=== PATIENT | male | born 1975 | race Caucasian/White ===

== ENCOUNTER 2017-07-11 09:43 | Inpatient (IN) ==
[2017-07-11] MEDS ORDERED: Ondansetron 4 MG/2 ML VIAL IVP ONE (10:22)
[2017-07-11] MEDS ORDERED: *HR* Morphine 2 MG/ML SYRINGE IVP ONE ×2 (10:22→12:17)
[2017-07-11] MEDS ORDERED: Ketorolac 30 MG/ML VIAL IVP ONE (10:22)
[2017-07-11 10:27] LABS: Bilirubin,Urine Negative (Negative); Blood,Urine Large (Negative); Clarity,Urine Clear (Clear); Color,Urine Yellow (Yellow); Glucose,Urine (UA) Normal (Normal); Ketones,Urine Negative (Negative); Leukocyte Esterase,Urine Negative (Negative); Nitrite,Urine Negative (Negative); PH,Urine 5.5 pH Units (5.0-8.0); Protein,Urine Trace mg/dL (Neg-Trace); Urobilinogen,Urine Normal (Normal)
--- NOTE | 2017-07-11 10:28 | Emergency Department Note ---
Disposition Clinical Impression: Ureterolithiasis, Intractable pain Hematuria Qualifiers: Hematuria type: unspecified type Qualified Code(s): R31.9 - Hematuria, unspecified Disposition: Admitted As Inpatient Referrals: NONE,PCP [Primary Care Provider] - Forms: ED Satisfaction Letter, Work/School Release Abdominal Pain HPI - General Chief Complaint: ED Abdominal Pain Stated Complaint: kidney stones x 1 week Time Seen by Provider: 07/11/17 09:56 Source: patient Mode of arrival: ambulatory Limitations: no limitations Nursing Notes Reviewed: Yes Vital Signs Reviewed: Yes - History of Present Illness HPI Narrative: This 42-year-old white male with history of hypertension and prior kidney stones who presents to the emergency department today with colicky generalized bilateral flank pain and suprapubic pain that he states he has been experiencing intermittently for the past 7 days. This morning patient states the pain severity worse and he is primarily feeling significant pain in the suprapubic area and complaining of difficulty urinating. Patient denies any fevers or chills over the past 7 days, is complaining of current nausea but no vomiting. Patient has a history of prior kidney stones but no required intervention by urology in the past. Patient states he has passed them spontaneously. He has no radiation of pain into the groin or testicles. Patient denies any chest pain or pressure, no diaphoresis, no shortness of breath. Patient denies any other associated symptoms at this time. Patient appears to be having colicky suprapubic pain. Pain Scale: 10 - Related Data Home Medications Medication Instructions Recorded Confirmed No Known Home Drugs 07/11/17 07/11/17 Allergies Allergy/AdvReac Type Severity Reaction Status Date / Time Hydromorphone [From Dilaudid] Allergy Swelling Verified 07/11/17 09:48 of Lip/Tongue/Throat Penicillins Allergy Hives Verified 07/11/17 09:48 Sulfa (Sulfonamide Allergy Hives Verified 07/11/17 09:48 Antibiotics) tramadol [From Ultram] Allergy Swelling Verified 07/11/17 09:48 of Lip/Tongue/Throat All systems ED: reviewed and negative except as stated. Constitutional: Denies: fever, chills Cardiovascular: Denies: chest pain, palpitations Respiratory: Denies: cough, dyspnea Gastrointestinal: Reports: abdominal pain, nausea. Denies: vomiting, diarrhea, constipation, hematemesis, melena, hematochezia Genitourinary: Reports: frequency. Denies: urgency, dysuria, hematuria, discharge, testicular pain, testicular mass, genital lesions Musculoskeletal: Reports: back pain Integumentary: Denies: rash Abdominal Pain PMH - Past Medical History Medical history: Reports: kidney stones Male Surgical History: Reports: Adenoidectomy, orthopedic, other, Tonsillectomy Psychiatric history: Reports: no psych history - Social History Smoking status: Never smoker Alcohol use: Reports: none Drug use: Reports: none Physical Exam - General Limitations: no limitations General appearance: alert (Patient appears uncomfortable with colicky pain, having difficulty finding a comfortable position.), other - Head Head exam: atraumatic, normocephalic, normal inspection - Eye Eye exam: Present: normal appearance, PERRL, EOMI - ENT ENT exam: normal exam, normal oropharynx - Neck Neck exam: Present: normal inspection - Chest Chest inspection: Present: normal inspection - Respiratory Respiratory exam: Present: normal lung sounds bilaterally. Absent: respiratory distress - Cardiovascular Cardiovascular exam: Present: regular rate, normal rhythm, normal heart sounds - Abdominal Exam Abdominal exam: Present: soft, tenderness, normal bowel sounds (Patient with majority of moderate tenderness to palpation in suprapubic area with mild tenderness to palpation in the right and left lower quadrants. No peritoneal signs.). Absent: distention, guarding, rebound, rigidity, pulsatile mass Abdominal tenderness: Present: RLQ, LLQ, suprapubic - Rectal Exam Rectal exam: Present: deferred - Male exam: Present: normal inspection - Extremities Exam Extremities exam: Present: normal inspection. Absent: pedal edema - Back Exam Back exam: Present: full ROM, CVA tenderness (R), CVA tenderness (L). Absent: muscle spasm, paraspinal tenderness - Neurological Exam Neurological exam: Present: alert, oriented X3, CN II-XII intact, normal gait, reflexes normal. Absent: motor sensory deficit - Psychiatric Psychiatric exam: Present: normal affect, normal mood - Skin Skin exam: Present: warm, dry, intact, normal color. Absent: rash Course Course Narrative: Patient is a 42-year-old white male with a history of prior kidney stones presents to the emergency room with a one-week history of intermittent bilateral flank pain and now worsening suprapubic pain with difficulty urinating. Patient is hemodynamically stable on arrival. We will start an IV, placed on continuous pulse ox and administer pain and nausea medications to get his symptoms under control. We will keep close monitor his hemodynamic status. Labs and urinalysis have been ordered as well as CT stone study for further evaluation. - Reevaluation(s) Reevaluation #1: On reevaluation patient's rating his pain as currently a 10 out of 10 in severity right sided radiating into his suprapubic area. We are re-dosing medications at this time. CT scan shows an obstructing 3 mm stone at the UVJ with moderate [place]. Due to intractable pain and I will plan to admit the patient to hospitalist. I consult urology from the ED and spoke with Dr. Gurwinder rosen on the phone who agrees that he will consult on the patient and see the patient later this afternoon. Patient remains hemodynamically stable otherwise and will be admitted for further management. Time: 12:23 Vital Signs Temperature 97.3 F L 07/11/17 09:46 Pulse Rate 86 07/11/17 09:46 Respiratory Rate 18 07/11/17 09:46 Blood Pressure 181/99 07/11/17 09:46 O2 Sat by Pulse Oximetry 96 07/11/17 09:46 Temperature 97.3 F L 07/11/17 09:46 Pulse Rate 70 07/11/17 11:33 Respiratory Rate 16 07/11/17 11:33 Blood Pressure 142/74 07/11/17 11:33 O2 Sat by Pulse Oximetry 93 07/11/17 11:33 Oxygen Delivery Oxygen Delivery Room Air Abdominal Pain - Medical Records Medical records reviewed: Yes I reviewed the patient's medical records. - Lab Data Lab results reviewed: Yes I reviewed the patient's lab results. Result diagrams: 07/11/17 10:30 07/11/17 10:49 Lab Results 07/11/17 07/11/17 07/11/17 Range/Units 10:20 10:30 10:30 WBC 8.9 (4.3-11.1) K/mcL RBC 5.56 H (4.19-5.50) M/mcL Hgb 16.5 (12.9-16.9) g/dL Hct 47.8 (37.5-50.1) % MCV 86.0 (83.0-100.0) fL MCH 29.7 (28.0-33.3) pg MCHC 34.5 (31.6-35.5) g/dL RDW 12.3 (11.5-14.5) % Plt Count 297 (140-400) K/mcL MPV 11.1 (9.4-12.4) fL Immature Gran % 0.4 (0-4) % Seg Neutrophils % 67.7 % Lymphocytes % 18.2 % Monocytes % 9.8 % Eosinophils % 2.8 % Basophils % 1.1 % Neutrophils # 6.0 (1.6-8.9) K/mcL Lymphocytes # 1.6 (0.6-4.6) K/mcL Monocytes # 0.9 (0.0-1.3) K/mcL Eosinophils # 0.3 (0.0-0.6) K/mcL Basophils # 0.1 (0.0-0.2) K/mcL Sodium (136-145) mEq/L Potassium (3.5-4.5) mEq/L Chloride (98-109) mEq/L Carbon Dioxide (19-29) mEq/L BUN (8-26) mg/dL Creatinine (0.72-1.25) mg/dL Est GFR ( Amer) (> 60) Est GFR (Non-Af Amer) (> 60) BUN/Creatinine Ratio (6-26) Glucose (70-99) mg/dL Calculated Osmolality (280-300) Calcium (8.6-10.8) mg/dL Urine Color Yellow (Yellow) Urine Clarity Clear (Clear) Urine pH 5.5 (5.0-8.0) pH Units Ur Specific [place] 1.030 H (1.010-1.025) Urine Protein Trace (Neg-Trace) mg/dL Urine Glucose (UA) Normal (Normal) mg/dL Urine Ketones Negative (Negative) mg/dL Urine Blood Large H (Negative) Urine Nitrite Negative (Negative) Urine Bilirubin Negative (Negative) Urine Urobilinogen Normal (Normal) mg/dL Ur Leukocyte Esterase Negative (Negative) Urine Microscopic RBC 5-15 H (0-3) per hpf Urine Microscopic WBC 3-5 H (0-3) per hpf Ur Squamous Epith Cells Many H (None-Few) per lpf Urine Bacteria None Seen (None-Few) per hpf Hyaline Casts None Seen (None-Few) per lpf Ur Culture Indicated? NO (NO) Specimen Rejected Hemolyzed 07/11/17 Range/Units 10:49 WBC (4.3-11.1) K/mcL RBC (4.19-5.50) M/mcL Hgb (12.9-16.9) g/dL Hct (37.5-50.1) % MCV (83.0-100.0) fL MCH (28.0-33.3) pg MCHC (31.6-35.5) g/dL RDW (11.5-14.5) % Plt Count (140-400) K/mcL MPV (9.4-12.4) fL Immature Gran % (0-4) % Seg Neutrophils % % Lymphocytes % % Monocytes % % Eosinophils % % Basophils % % Neutrophils # (1.6-8.9) K/mcL Lymphocytes # (0.6-4.6) K/mcL Monocytes # (0.0-1.3) K/mcL Eosinophils # (0.0-0.6) K/mcL Basophils # (0.0-0.2) K/mcL Sodium 137 (136-145) mEq/L Potassium 4.3 (3.5-4.5) mEq/L Chloride 105 (98-109) mEq/L Carbon Dioxide 23 (19-29) mEq/L BUN 12 (8-26) mg/dL Creatinine 1.01 (0.72-1.25) mg/dL Est GFR ( Amer) > 60 (> 60) Est GFR (Non-Af Amer) > 60 (> 60) BUN/Creatinine Ratio 12 (6-26) Glucose 130 H (70-99) mg/dL Calculated Osmolality 286 (280-300) Calcium 9.7 (8.6-10.8) mg/dL Urine Color (Yellow) Urine Clarity (Clear) Urine pH (5.0-8.0) pH Units Ur Specific [place] (1.010-1.025) Urine Protein (Neg-Trace) mg/dL Urine Glucose (UA) (Normal) mg/dL Urine Ketones (Negative) mg/dL Urine Blood (Negative) Urine Nitrite (Negative) Urine Bilirubin (Negative) Urine Urobilinogen (Normal) mg/dL Ur Leukocyte Esterase (Negative) Urine Microscopic RBC (0-3) per hpf Urine Microscopic WBC (0-3) per hpf Ur Squamous Epith Cells (None-Few) per lpf Urine Bacteria (None-Few) per hpf Hyaline Casts (None-Few) per lpf Ur Culture Indicated? (NO) Specimen Rejected - Radiology Data Radiology results reviewed: Yes I reviewed the patient's radiology results. Abdomen/Pelvis CT 07/11/17 10:23 IMPRESSION: 1. Obstructing 3 mm right ureterovesical junction stone with resultant moderate right-sided hydronephrosis. 2. Sequela of old granulomatous disease. D/ / 07/11/2017 12:12:30 Cedrick Stone MD / milena Interpreting Provider: Cedrick Stone MD
[2017-07-11 10:29] LABS: Bacteria,Urine None Seen per hpf (None-Few); Hyaline Casts,Urine None Seen per lpf (None-Few); Squamous Epithelial Cell,Urine Many per lpf (None-Few)
[2017-07-11 10:37] LABS: Basophils # 0.1 K/mcL (0.0-0.2); Basophils % 1.1 %; Eosinophils # 0.3 K/mcL (0.0-0.6); Eosinophils % 2.8 %; Hematocrit 47.8 % (37.5-50.1); Hemoglobin 16.5 g/dL (12.9-16.9); Immature Granulocytes % 0.4 % (0-4); Lymphocytes # 1.6 K/mcL (0.6-4.6); Lymphocytes % 18.2 %; Mean Corpuscular HGB Conc 34.5 g/dL (31.6-35.5); Mean Corpuscular Hemoglobin 29.7 pg (28.0-33.3); Mean Platelet Volume 11.1 fL (9.4-12.4); Monocytes # 0.9 K/mcL (0.0-1.3); Monocytes % 9.8 %; Platelet Count 297 K/mcL (140-400); Red Blood Count 5.56 M/mcL (4.19-5.50); Red Cell Distribution Width 12.3 % (11.5-14.5); Segmented Neutrophils % 67.7 %
[2017-07-11 11:08] LABS: BUN/Creatinine Ratio 12 (6-26); Blood Urea Nitrogen 12 mg/dL (8-26); Calcium 9.7 mg/dL (8.6-10.8); Carbon Dioxide 23 mEq/L (19-29); Chloride 105 mEq/L (98-109); Glucose 130 mg/dL (70-99); Osmolality,Calculated 286 (280-300); Potassium 4.3 mEq/L (3.5-4.5); Sodium 137 mEq/L (136-145); eGFR For African Americans > 60 (> 60); eGFR For Non-African Americans > 60 (> 60)
[2017-07-11] MEDS ORDERED: Ondansetron 4 MG/2 ML VIAL IVP PRN (13:46)
[2017-07-11] MEDS ORDERED: Naloxone 0.4 MG/ML INJ IVP PRN (13:46)
--- NOTE | 2017-07-11 13:47 | Urology - Consult Note ---
Date of Encounter: 07/11/17 Time of Encounter: 13:42 - Assessment and Plan (1) Ureterolithiasis Current Visit: Yes Status: Acute Assessment and plan: push fluids tonight., npo after midnight for possible stone extraction tomorrow afternoon. Urology CN:ALICIA Consult date: 07/11/17 Reason for consult Urology: Other (right distal ureteral stone) Requesting physician: Dinora Norwood History of present illness: Isaiah is a 42 y/o male with a history of presentation to the emergency Department secondary to severe right-sided flank and suprapubic pain. Patient was found on CT scan to have a distal 1-2 mm stone. Patient's pain was poorly controlled with IV pain medicine. No nausea or vomiting. No fevers. Past Med Surg Social Fam HX - Past Medical History Medical history: kidney stones Psychiatric history: no psych history - Social History Smoking Status: Never smoker Smokeless Tobacco Status: Yes Alcohol use: none Drug use: none Medications and Allergies No Known Home Drugs 07/11/17 [History] 3 Allergy/AdvReac Type Severity Reaction Status Date / Time Hydromorphone [From Dilaudid] Allergy Swelling Verified 07/11/17 09:48 of Lip/Tongue/Throat Penicillins Allergy Hives Verified 07/11/17 09:48 Sulfa (Sulfonamide Allergy Hives Verified 07/11/17 09:48 Antibiotics) tramadol [From Ultram] Allergy Swelling Verified 07/11/17 09:48 of Lip/Tongue/Throat Review of Systems - Constitutional no chills - EENT Nose, mouth and throat: no dizziness - Cardiovascular no chest pain - Respiratory no cough - Gastrointestinal no abdominal pain Exam Initial Vital Signs Temp Pulse Resp BP Pulse Ox 97.3 F L 86 18 181/99 96 07/11/17 09:46 07/11/17 09:46 07/11/17 09:46 07/11/17 09:46 07/11/17 09:46 - General physical appearance Present: well developed - Eyes Present: PERRL - ENT Present: normal nares - Neck Present: no masses - Respiratory Present: normal respiratory effort - Cardiovascular Cardiovascular exam IM: RRR - Abdomen Abdomen: Present: soft Urology Results - Labs 07/11/17 10:30 07/11/17 10:49 Abnormal lab results RBC 5.56 M/mcL (4.19-5.50) H 07/11/17 10:30 Glucose 130 mg/dL (70-99) H 07/11/17 10:49 Ur Specific [place] 1.030 (1.010-1.025) H 07/11/17 10:20 Urine Blood Large (Negative) H 07/11/17 10:20 Urine Microscopic RBC 5-15 per hpf (0-3) H 07/11/17 10:20 Urine Microscopic WBC 3-5 per hpf (0-3) H 07/11/17 10:20 Ur Squamous Epith Cells Many per lpf (None-Few) H 07/11/17 10:20 Diabetes panel 07/11/17 Range/Units 10:49 Sodium 137 (136-145) mEq/L Potassium 4.3 (3.5-4.5) mEq/L Chloride 105 (98-109) mEq/L Carbon Dioxide 23 (19-29) mEq/L BUN 12 (8-26) mg/dL Creatinine 1.01 (0.72-1.25) mg/dL Glucose 130 H (70-99) mg/dL Calcium 9.7 (8.6-10.8) mg/dL Calcium panel 07/11/17 Range/Units 10:49 Calcium 9.7 (8.6-10.8) mg/dL Pituitary panel 07/11/17 Range/Units 10:49 Sodium 137 (136-145) mEq/L Potassium 4.3 (3.5-4.5) mEq/L Chloride 105 (98-109) mEq/L Carbon Dioxide 23 (19-29) mEq/L BUN 12 (8-26) mg/dL Creatinine 1.01 (0.72-1.25) mg/dL Glucose 130 H (70-99) mg/dL Calcium 9.7 (8.6-10.8) mg/dL Adrenal panel 07/11/17 Range/Units 10:49 Sodium 137 (136-145) mEq/L Potassium 4.3 (3.5-4.5) mEq/L Chloride 105 (98-109) mEq/L Carbon Dioxide 23 (19-29) mEq/L BUN 12 (8-26) mg/dL Creatinine 1.01 (0.72-1.25) mg/dL Glucose 130 H (70-99) mg/dL Calcium 9.7 (8.6-10.8) mg/dL All other labs normal. Consult Discharge Plan - Plan Referrals: NONE,PCP [Primary Care Provider] -
[2017-07-11] MEDS ORDERED: 0.9 % Sodium Chloride 1,000 ML IVC SCH (14:00)
--- NOTE | 2017-07-11 14:15 | Internal Med History&Physical ---
<Sanaz Davidson - Last Filed: 07/11/17 14:28> Date of Encounter: 07/11/17 Time of Encounter: 14:09 Assessment and Plan (1) Ureterolithiasis Current visit: Yes Status: Acute 1 patient has been experiencing bilateral flank pain radiating to suprapubic area difficulty urinating for the past week. CT shows an obstructing 3 mm stone at the UVJ with moderate hydronephrosis. Urology's consulted. Patient will be nothing by mouth after midnight. 2 we will continue with IV fluids overnight 3 continue with morphine for pain as well as Zofran 4 we will monitor creatinine (2) DVT prophylaxis Current visit: Yes Status: Acute SCD Internal Medicine - H&P: HPI Chief complaint: abd pain Admitted From: Emergency Dept Plans for Post Hospital Care: Home History of present illness: Mr. Romano is a 42 year old male past medical history of hypertension prior kidney stone which patient passed on his own approximately one year ago. Patient has been experiencing for 1 week intermittent bilateral flank pain which he describes as sharp and radiating to his suprapubic area. He has been experiencing difficulty in urinating however no hematuria or dysuria. He denies any fevers or chills, chest pain or shortness of breath. He does have some nausea and vomiting. He continues to experience 10 out 10 flank pain radiating to his suprapubic area, despite the use of Percocets at home. He presented to the ER with the above complaints. CT scan showed an obstructing 3 mm stone at the UVJ with moderate hydronephrosis. Urology was consulted. Patient has been admitted for further workup and evaluation. Terry patient states his pain has improved, however he does have bilateral CVA tenderness as well as tenderness to suprapubic area upon palpation. He is hemodynamically stable this time. T P Past Med Surg Social Fam HX - Past Medical History Medical history: kidney stones Psychiatric history: no psych history - Social History Smoking Status: Never smoker Smokeless Tobacco Status: Yes Alcohol use: none Drug use: none - Family History Father Living Status: Cause of : [place] Mother Living Status: Still Living Hx Family Endocrine Disorder: Yes (Diabetes) Internal Medicine - H&P: Meds No Known Home Drugs 07/11/17 [History] 3 Allergy/AdvReac Type Severity Reaction Status Date / Time Hydromorphone [From Dilaudid] Allergy Swelling Verified 07/11/17 09:48 of Lip/Tongue/Throat Penicillins Allergy Hives Verified 07/11/17 09:48 Sulfa (Sulfonamide Allergy Hives Verified 07/11/17 09:48 Antibiotics) tramadol [From Ultram] Allergy Swelling Verified 07/11/17 09:48 of Lip/Tongue/Throat All Systems PM: A 10-system review of systems was performed and is negative for pertinent findings except as documented above in the HPI. - Constitutional Constitutional: no chills, no fever(s), no night sweats - EENT Eyes: no change in vision, no discharge, no pain, no photophobia Nose, mouth and throat: no dysphagia, no nasal discharge, no neck pain, no sore throat - Cardiovascular Cardiovascular ROS IM: no chest pain, no diaphoresis, no dyspnea, no lightheadedness, no palpitations, no syncope - Respiratory Respiratory: no cough, no dyspnea, no wheezing, no excessive phlegm production - Gastrointestinal Gastrointestinal: abdominal pain, nausea, vomiting - Genitourinary Genitourinary ROS male: difficulty urinating - Musculoskeletal Musculoskeletal ROS IM: no numbness, no tingling - Integumentary Integumentary IM: no rash, no unusual bruising - Neurological Neurological ROS: no confusion, no convulsions, no focal weakness, no numbness, no tingling, no tremor(s) - Hematologic/Lymphatic Hematologic/Lymphatic: no easy bruising - Constitutional Vitals: Temp Pulse Resp BP Pulse Ox 97.3 F L 65 16 132/89 98 07/11/17 09:46 07/11/17 12:57 07/11/17 12:57 07/11/17 12:57 07/11/17 12:57 General appearance: Present: A&O X 3 - Head Head exam: Present: atraumatic, normocephalic - Eye Eye exam: Present: PERRL, conjuntiva pink, sclera anicteric Pupils: Present: PERRL - Neck Neck exam general surgery: Present: supple, trachea midline. Absent: lymphadenopathy - Respiratory Respiratory exam: Present: CTAB. Absent: accessory muscle use, rales, rhonchi, wheezes - Cardiovascular Cardiovascular exam: Present: RRR, +S1, +S2. Absent: diastolic murmur, gallop, rubs, systolic murmur - GI/Abdominal GI/Abdominal exam: Present: normal bowel sounds, soft, tenderness, no peritoneal signs. Absent: distended - Extremities Exam Extremities exam: Present: warm, radial pulses palpable and symmetrical. Absent : calf tenderness, cyanotic, pedal edema - Back Exam Back exam: Present: CVA tenderness (L), CVA tenderness (R) - Neurological Exam Neurological exam: Present: CN II-XII intact, oriented X3, no focal deficits. Absent: pronater drift, facial droop, speech deficit - Skin Skin exam: Present: dry, intact Internal Med - H&P Results - Labs CBC & Chem 7: 07/11/17 10:30 07/11/17 10:49 Labs: Short CBC 07/11/17 Range/Units 10:30 WBC 8.9 (4.3-11.1) K/mcL Hgb 16.5 (12.9-16.9) g/dL Hct 47.8 (37.5-50.1) % Plt Count 297 (140-400) K/mcL Neutrophils # 6.0 (1.6-8.9) K/mcL BMP 07/11/17 10:49 Sodium 137 Potassium 4.3 Chloride 105 Carbon Dioxide 23 BUN 12 Creatinine 1.01 Glucose 130 H Calcium 9.7 Urine 07/11/17 Range/Units 10:20 Urine Color Yellow (Yellow) Urine Clarity Clear (Clear) Urine pH 5.5 (5.0-8.0) pH Units Ur Specific [place] 1.030 H (1.010-1.025) Urine Protein Trace (Neg-Trace) mg/dL Urine Glucose (UA) Normal (Normal) mg/dL - Impressions ITS Impressions Abdomen/Pelvis CT 07/11/17 10:23 IMPRESSION: 1. Obstructing 3 mm right ureterovesical junction stone with resultant moderate right-sided hydronephrosis. 2. Sequela of old granulomatous disease. D/ / 07/11/2017 12:12:30 Cedrick Stone MD / bcarter Interpreting Provider: Cedrick Stone MD - Diagnostic Studies Other Images Additional comments: Abdomen/Pelvis CT 07/11/17 10:23 IMPRESSION: 1. Obstructing 3 mm right ureterovesical junction stone with resultant moderate right-sided hydronephrosis. 2. Sequela of old granulomatous disease. D/ / 07/11/2017 12:12:30 Cedrick Stone MD / milena Interpreting Provider: Cedrick Stone MD <Wicho Landeros P - Last Filed: 07/11/17 18:50> Date of Encounter: 07/11/17 Internal Medicine - H&P: HPI History of present illness: Mr. Romano is a 42 year old male All Systems PM: A 10-system review of systems was performed and is negative for pertinent findings except as documented above in the HPI. - Constitutional Vitals: Temp Pulse Resp BP Pulse Ox 98.2 F 80 16 160/95 98 07/11/17 17:05 07/11/17 17:05 07/11/17 17:05 07/11/17 17:05 07/11/17 17:05 Internal Med - H&P Results - Labs CBC & Chem 7: 07/11/17 10:30 07/11/17 10:49 - Attending Attestation I examined this patient and my medical decision-making was reviewed with the Resident Physician/ DOCK WORKER. I agree with the documented findings, disposition and treatment plan as described except to the extent set forth below. 42/male Admitted with renal stone. Urology on the board. We will follow the recommendations from urology.
[2017-07-11] MEDS: 0.9 % Sodium Chloride 1,000 ML IVC SCH (17:58)
[2017-07-11] MEDS: *HR* Morphine 2 MG/ML SYRINGE IVP PRN ×2 (18:25→22:41)
--- NOTE | 2017-07-11 20:14 | Anesthesia Evaluation PreOp ---
Date of Encounter: 07/11/17 Time of Encounter: 20:14 - Past History Planned Operation: Right USE Cardiac History: HTN Pulmonary History: Denies Any Significant HX PROVIDER ENROLLMENT SPECIALIST History: Denies Any Significant HX Other Medical History: Renal (Stones) Anesthesia History: Past Anesthesia (left Shoulder) Alcohol Use: none Drug use: marijuana Medications and Allergies No Known Home Drugs 07/11/17 [History] 3 Allergy/AdvReac Type Severity Reaction Status Date / Time Hydromorphone [From Dilaudid] Allergy Swelling Verified 07/11/17 09:48 of Lip/Tongue/Throat Penicillins Allergy Hives Verified 07/11/17 09:48 Sulfa (Sulfonamide Allergy Hives Verified 07/11/17 09:48 Antibiotics) tramadol [From Ultram] Allergy Swelling Verified 07/11/17 09:48 of Lip/Tongue/Throat - Meds/Allergy Pre-op Review Medications Reviewed: Yes Allergies Reviewed: Yes Beta Blockers on Current Med List: No Anesthesia Results - Labs 07/11/17 10:30 07/11/17 10:49 - Imaging EKG: image reviewed (SINUS RHYTHM WITH SINUS ARRHYTHMIA) Anesthesia Exam O2 Sat Height 1.68 m Height 1.68 m Weight 113.398 kg Weight 113.398 kg O2 Sat by Pulse Oximetry 98 O2 Sat by Pulse Oximetry 96 O2 Sat by Pulse Oximetry 98 O2 Sat by Pulse Oximetry 95 O2 Sat by Pulse Oximetry 97 O2 Sat by Pulse Oximetry 98 O2 Sat by Pulse Oximetry 93 O2 Sat by Pulse Oximetry 96 Vital Signs Temp Pulse Resp BP Pulse Ox 97.3 F L 86 18 181/99 96 07/11/17 09:46 07/11/17 09:46 07/11/17 09:46 07/11/17 09:46 07/11/17 09:46 Vital Signs/O2 Sat, Most Current Temp Pulse Resp BP Pulse Ox 97.7 F 74 15 145/96 98 07/11/17 23:57 07/11/17 23:57 07/11/17 23:57 07/11/17 23:57 07/11/17 23:57 Height: 5'6'' Weight: 250# NPO (# of Hours): > 8 hrs Pain Scale: 0 Pain Scale Used: Numeric (1 - 10) - HEENT Pupil (Motor): Pupils equal, EOMI Mallampati: III Teeth: Normal Oral Opening: Greater than 3 - PROVIDER ENROLLMENT SPECIALIST LOC: Oriented PROVIDER ENROLLMENT SPECIALIST Motor: Normal RUE, Normal LUE, Normal RLE, Normal LLE, Normal Face PROVIDER ENROLLMENT SPECIALIST Sensory: Normal: RUE, LUE, RLE, LLE, Face - Cardiac Rhythm: Regular Murmur: None JVD: No Carotid Bruit: No - Pulmonary Breath Sounds: bilateral Clear Respiratory Effort: Symmetrical Anesthesia Assess/Plan ASA Score: 2 Modified Fern Scale for Level of Consciousness: Anixous, agitated or restless Anesthetic Plan: General Autologous Blood: Yes Monitoring Plan: Standard Monitors Recovery Plan: PACU
[2017-07-12] MEDS: 0.9 % Sodium Chloride 1,000 ML IVC SCH (01:52)
[2017-07-12] MEDS: *HR* Morphine 2 MG/ML SYRINGE IVP PRN ×3 (02:57→10:40)
[2017-07-12 04:42] LABS: Basophils # 0.1 K/mcL (0.0-0.2); Basophils % 0.6 %; Eosinophils # 0.3 K/mcL (0.0-0.6); Eosinophils % 3.7 %; Hematocrit 44.7 % (37.5-50.1); Immature Granulocytes % 0.3 % (0-4); Lymphocytes # 2.7 K/mcL (0.6-4.6); Lymphocytes % 28.6 %; Mean Corpuscular HGB Conc 33.6 g/dL (31.6-35.5); Mean Corpuscular Hemoglobin 29.6 pg (28.0-33.3); Mean Corpuscular Volume 88.3 fL (83.0-100.0); Mean Platelet Volume 11.4 fL (9.4-12.4); Monocytes # 0.9 K/mcL (0.0-1.3); Monocytes % 10.2 %; Neutrophils # 5.2 K/mcL (1.6-8.9); Platelet Count 253 K/mcL (140-400); Red Blood Count 5.06 M/mcL (4.19-5.50); Red Cell Distribution Width 12.6 % (11.5-14.5); Segmented Neutrophils % 56.6 %
[2017-07-12 05:00] LABS: BUN/Creatinine Ratio 14 (6-26); Blood Urea Nitrogen 11 mg/dL (8-26); Calcium 8.6 mg/dL (8.6-10.8); Carbon Dioxide 23 mEq/L (19-29); Chloride 110 mEq/L (98-109); Glucose 96 mg/dL (70-99); Magnesium 1.7 mg/dL (1.6-2.6); Osmolality,Calculated 289 (280-300); Potassium 4.1 mEq/L (3.5-4.5); Sodium 140 mEq/L (136-145); eGFR For African Americans > 60 (> 60); eGFR For Non-African Americans > 60 (> 60)
[2017-07-12] MEDS ORDERED: 0.9 % Sodium Chloride 1,000 ML IVC SCH (07:15)
--- NOTE | 2017-07-12 07:15 | Urology Progress Note ---
Date of Encounter: 07/12/17 Time of Encounter: 07:14 - Assessment and Plan (1) Ureterolithiasis Current Visit: Yes Status: Acute Assessment and plan: to OR today for stone extraction. likely able to dc later today after surgery Progress Note Narrative: patient seen this am. has not passed stone. pain off and on. Objective Initial Vital Signs Temp Pulse Resp BP Pulse Ox 97.3 F L 86 18 181/99 96 07/11/17 09:46 07/11/17 09:46 07/11/17 09:46 07/11/17 09:46 07/11/17 09:46 - General physical appearance Present: well developed - Abdomen Present: soft - Labs 07/12/17 03:51 07/12/17 03:51 Diabetes panel 07/12/17 Range/Units 03:51 Sodium 140 (136-145) mEq/L Potassium 4.1 (3.5-4.5) mEq/L Chloride 110 H (98-109) mEq/L Carbon Dioxide 23 (19-29) mEq/L BUN 11 (8-26) mg/dL Creatinine 0.78 (0.72-1.25) mg/dL Glucose 96 (70-99) mg/dL Calcium 8.6 (8.6-10.8) mg/dL Calcium panel 07/12/17 Range/Units 03:51 Calcium 8.6 (8.6-10.8) mg/dL Pituitary panel 07/12/17 Range/Units 03:51 Sodium 140 (136-145) mEq/L Potassium 4.1 (3.5-4.5) mEq/L Chloride 110 H (98-109) mEq/L Carbon Dioxide 23 (19-29) mEq/L BUN 11 (8-26) mg/dL Creatinine 0.78 (0.72-1.25) mg/dL Glucose 96 (70-99) mg/dL Calcium 8.6 (8.6-10.8) mg/dL Adrenal panel 07/12/17 Range/Units 03:51 Sodium 140 (136-145) mEq/L Potassium 4.1 (3.5-4.5) mEq/L Chloride 110 H (98-109) mEq/L Carbon Dioxide 23 (19-29) mEq/L BUN 11 (8-26) mg/dL Creatinine 0.78 (0.72-1.25) mg/dL Glucose 96 (70-99) mg/dL Calcium 8.6 (8.6-10.8) mg/dL Consult Discharge Plan - Plan Referrals: Krishan Stanton MD [Partnered Physician] -
[2017-07-12] MEDS ORDERED: Ketorolac 30 MG/ML VIAL IVP ONE (12:24)
[2017-07-12] MEDS ORDERED: *HR* Morphine 2 MG/ML SYRINGE IVP ONE (12:24)
[2017-07-12] MEDS ORDERED: *HR* Morphine 2 MG/ML SYRINGE IVP PRN ×2 (14:53→15:51)
[2017-07-12] MEDS ORDERED: *HR* Promethazine 25 MG/ML VIAL IVP PRN (14:53)
[2017-07-12] MEDS ORDERED: Ondansetron 4 MG/2 ML VIAL ONE (14:56)
[2017-07-12] MEDS ORDERED: *HR* FentaNYL (PF) 100 MCG/2 ML VIAL ONE (14:56)
[2017-07-12] MEDS ORDERED: *HR* Propofol 200 MG/20 ML VIAL IVP ONE (14:56)
[2017-07-12] MEDS ORDERED: Dexamethasone 4 MG/ML VIAL ONE (14:56)
[2017-07-12] MEDS ORDERED: Lidocaine -MPF 2% 2 ML VIAL ONE (14:56)
--- NOTE | 2017-07-12 14:57 | Operative Note ---
Date of procedure: 07/12/17 Pre-op diagnosis: right distal ureteral stone Post-op diagnosis: same Procedure: Right ureteroscopic basket retrieval of stone Anesthesia: TIERA Surgeon: Krishan Stanton Specimen: Right ureteral stone Condition: stable Disposition: PACU Procedure in Detail: Patient was prepped and draped in normal sterile fashion. Timeout procedure performed. I then inserted the semirigid ureteroscope into the patient's urethra and advanced into the bladder. Upon entering the bladder I could see the right ureteral stone at the ureteral orifice. I used the basket device to remove the stone. I then placed the ureteroscope up the distal ureter with no further stone seen. Scope was removed and the procedure was ended.
--- NOTE | 2017-07-12 14:57 | Event Note ---
Date of Encounter: 07/12/17 Time of Encounter: 14:57 Patient is okay to discharge from urology standpoint with follow-up in 2-3 weeks.
[2017-07-12] MEDS ORDERED: ceFAZolin 2,000 MG in Water for inj. (sterile) 20 ML IVP ONE (15:42)
--- NOTE | 2017-07-12 15:43 | Anesthesia Evaluation Post Op ---
Date of Encounter: 07/12/17 Time of Encounter: 15:42 - Vital Signs Vital Signs: Selected Entries 07/12/17 15:30 Temperature 97.0 F L Pulse Rate 69 Respiratory Rate 16 Blood Pressure 134/84 O2 Sat by Pulse Oximetry 94 - Lungs Lungs: Clear Ascult./Percussion - Airway Airway: Non-obstructed - Cardiovascular Regular Rate - Mental Status Mental Status: Alert & Oriented, Answers Appropriately - Pain Pain Scale: 0 Pain Scale used: Numeric (1 - 10) - Nausea Vomiting Nausea Vomiting: Not Present - Hydration Hydration: Ice chips, Has not voided - Discharge PostOp Status: Transfer Patient to floor
[2017-07-12] MEDS ORDERED: Naloxone 0.4 MG/ML INJ IVP PRN (15:51)
[2017-07-12] MEDS ORDERED: Ondansetron 4 MG/2 ML VIAL IVP PRN (15:51)
[2017-07-12] MEDS ORDERED: *HR* HYDROcodone/Acet 5/325 mg TABLET PO PRN (15:51)
--- NOTE | 2017-07-12 17:30 | Discharge Summary ---
Date of Encounter: 07/12/17 Time of Encounter: 17:25 - Discharge Diagnosis (1) Ureterolithiasis Priority: Primary Status: Acute - Discharge Medications Prescriptions: HYDROcodone/Acet 5/325 mg [[place] 5-325 mg] 1 tab PO Q6HR PRN #12 tablet PRN Reason: pain 1-7 Home Medications: HYDROcodone/Acet 5/325 mg [[place] 5-325 mg] 1 tab PO Q6HR PRN #12 tablet [Rx] Allergies/Adverse Reactions: 3 Allergy/AdvReac Type Severity Reaction Status Date / Time Hydromorphone [From Dilaudid] Allergy Swelling Verified 07/11/17 09:48 of Lip/Tongue/Throat Penicillins Allergy Hives Verified 07/11/17 09:48 Sulfa (Sulfonamide Allergy Hives Verified 07/11/17 09:48 Antibiotics) tramadol [From Ultram] Allergy Swelling Verified 07/11/17 09:48 of Lip/Tongue/Throat Date of admission: 07/11/17 15:43 Primary care physician: PCP NONE Discharging clinician: Colt Lomeli - Patient Status Disposition: Home, Self-Care Condition: Good Functional capacity at discharge: independent ambulation Overall status at discharge: patient is progressing back to baseline - Discharge Instructions Follow Up With: Krishan Stanton MD [Partnered Physician] - - Diet and Activity Activity: increase activity as tolerated Diet: advance to your usual diet Hospital course: Mr. Romano is a 42 year old male past medical history of hypertension prior kidney stone which patient passed on his own approximately one year ago. Patient has been experiencing for 1 week intermittent bilateral flank pain which he describes as sharp and radiating to his suprapubic area. He has been experiencing difficulty in urinating however no hematuria or dysuria. He denies any fevers or chills, chest pain or shortness of breath. He does have some nausea and vomiting. He continues to experience 10 out 10 flank pain radiating to his suprapubic area, despite the use of Percocets at home. He presented to the ER with the above complaints. CT scan showed an obstructing 3 mm stone at the UVJ with moderate hydronephrosis. He was hemodynamically stable. Urology was consulted. On 07/12 he underwent right ureteroscopic basket retrieval of stone. He tolerated procedure well. He was discharged home in stable condition. - Time Spent with Patient Total time spent providing and/or coordinating discharge services: - Constitutional Vitals: Temp Pulse Resp BP Pulse Ox 98.1 F 67 16 143/84 98 07/12/17 16:45 07/12/17 16:45 07/12/17 16:45 07/12/17 16:45 07/12/17 16:45 General appearance: Present: A&O X 3 Exam: CVS: RRR Lungs: CTAB ABD: soft, nt/nd flank: +TTP right region Ext: no edema. - VTE Documentation of Mechanical Device: Intermittent pneumatic compression device
[2017-07-12 18:44] VITALS: BP 138/72
== END 2017-07-12 19:05 | disposition home or self-care (01) | DRG 446 ==
LOC: EMEROO 09:43 → 3ANU 09:43
PROVIDERS: ADMIT Nurse Practitioner Acute Care; ATTEND Student in an Organized Health Care Education/Training Program

== ENCOUNTER 2017-09-24 13:23 | Inpatient (IN) ==
[2017-09-24 14:15] LABS: Bilirubin,Urine Small (Negative); Blood,Urine Large (Negative); Clarity,Urine Cloudy (Clear); Color,Urine Red (Yellow); Glucose,Urine (UA) Normal (Normal); Ketones,Urine Negative (Negative); Leukocyte Esterase,Urine Trace (Negative); Nitrite,Urine Negative (Negative); PH,Urine 5.5 pH Units (5.0-8.0); Protein,Urine 30 mg/dL (Neg-Trace); Specific Gravity,Urine > 1.030 (1.010-1.025); Urobilinogen,Urine Normal (Normal)
[2017-09-24 14:20] LABS: Bacteria,Urine None Seen per hpf (None-Few); Hyaline Casts,Urine None Seen per lpf (None-Few); RBC,Urine TNTC per hpf (0-3); Squamous Epithelial Cell,Urine Many per lpf (None-Few)
[2017-09-24] MEDS ORDERED: *HR* Morphine 2 MG/ML SYRINGE IVP ONE ×3 (17:12→22:12)
[2017-09-24] MEDS ORDERED: Ondansetron 4 MG/2 ML VIAL IVP ONE (17:14)
--- NOTE | 2017-09-24 17:16 | Emergency Department Note ---
Disposition Clinical Impression: Kidney stone on left side Pneumonia Qualifiers: Pneumonia type: due to unspecified organism Laterality: right Lung location: lower lobe of lung Qualified Code(s): J18.1 - Lobar pneumonia, unspecified organism Disposition: Admitted As Inpatient Condition: Good Referrals: NONE,PCP [Primary Care Provider] - Forms: ED Satisfaction Letter, Work/School Release Time of Disposition: 18:40 General Adult HPI - General Chief complaint: ED Abdominal Pain Stated complaint: Kidney Stones Time Seen by Provider: 09/24/17 17:04 Source: patient Limitations: no limitations Nursing Notes Reviewed: Yes Vital Signs Reviewed: Yes - History of Present Illness HPI Narrative: Patient is a 42-year-old male the patient's emergency Department with right- sided flank pain. He states that he feels that he has a kidney stone. States that he has a history of kidney stones most recently as July. States that he had to have an intervention at that time for removal of his kidney stone. States that his pain has been ongoing for the past couple days and radiates into his groin. Patient denies any fever or chills but does state that he has been nauseated. Patient also states that he has had some dysuria and hematuria Pain Scale: 7 - Related Data Home Medications Medication Instructions Recorded Confirmed No Known Home Drugs 09/24/17 09/24/17 Allergies Allergy/AdvReac Type Severity Reaction Status Date / Time Hydromorphone [From Dilaudid] Allergy Swelling Verified 07/11/17 09:48 of Lip/Tongue/Throat Penicillins Allergy Hives Verified 07/11/17 09:48 Sulfa (Sulfonamide Allergy Hives Verified 07/11/17 09:48 Antibiotics) tramadol [From Ultram] Allergy Swelling Verified 07/11/17 09:48 of Lip/Tongue/Throat All systems ED: reviewed and negative except as stated. Constitutional: Denies: fever, chills Respiratory: Reports: cough Gastrointestinal: Reports: nausea Genitourinary: Reports: dysuria, hematuria Musculoskeletal: Reports: back pain Past Medical History - Past Medical History Medical history: Reports: kidney stones Psychiatric history: Reports: no psych history - Social History Smoking Status: Never smoker Smokeless Tobacco Status: Yes Alcohol use: Reports: none Drug use: Reports: marijuana Physical Exam - General Limitations: no limitations General appearance: alert, in no apparent distress - Head Head exam: atraumatic, normocephalic - Eye Eye exam: Present: normal appearance, EOMI - Neck Neck exam: Present: normal inspection, full ROM, trachea midline - Respiratory Respiratory exam: Present: normal lung sounds bilaterally. Absent: respiratory distress, wheezes - Cardiovascular Cardiovascular exam: Present: regular rate, normal rhythm, normal heart sounds, +S1, +S2 - Abdominal Exam Abdominal exam: Present: soft, Non-Tender, normal bowel sounds - Back Exam Back exam: Present: normal inspection, full ROM, CVA tenderness (R), CVA tenderness (L) - Neurological Exam Neurological exam: Present: alert, oriented X3 - Psychiatric Psychiatric exam: Present: normal affect, normal mood - Skin Skin exam: Present: warm, dry, intact Course Vital Signs Temperature 100.3 F H 09/24/17 13:38 Pulse Rate 93 09/24/17 13:38 Respiratory Rate 18 09/24/17 13:38 Blood Pressure 144/88 09/24/17 13:38 O2 Sat by Pulse Oximetry 96 09/24/17 13:38 Temperature 100.3 F H 09/24/17 13:38 Pulse Rate 93 09/24/17 13:38 Respiratory Rate 18 09/24/17 13:38 Blood Pressure 144/88 09/24/17 13:38 O2 Sat by Pulse Oximetry 96 09/24/17 13:38 Oxygen Delivery Oxygen Delivery Room Air Medical Decision Making - MDM Narrative Medical decision making narrative: Due the patient having recurrent kidney stones and this feeling is similar to previous kidney stones within his CBC, BMP, urinalysis and a CT of the abdomen and pelvis. Patient had an elevated white count of 18.1. Urinalysis showed possible infection and CT of the abdomen and pelvis showed a right sided pneumonia and a small kidney stone on the left measuring approximately 1-2 mm. The patient having pneumonia and possible urinary tract infection we will treat the patient with azithromycin and Rocephin. We will also give the patient a fluid bolus and dropped blood cultures. The patient will need to be admitted to the hospital for further evaluation and management. The attending called and spoke with the hospitalist and accepted the patient for service. The patient will be admitted to the hospital for further evaluation and management at this time. - Lab Data Lab results reviewed: Yes I reviewed the patient's lab results. Result diagrams: 09/24/17 17:25 09/24/17 17:25 Lab Results 09/24/17 09/24/17 09/24/17 Range/Units 14:07 17:25 17:25 WBC 18.1 H (4.3-11.1) K/mcL RBC 4.91 (4.19-5.50) M/mcL Hgb 14.4 (12.9-16.9) g/dL Hct 42.4 (37.5-50.1) % MCV 86.4 (83.0-100.0) fL MCH 29.3 (28.0-33.3) pg MCHC 34.0 (31.6-35.5) g/dL RDW 12.3 (11.5-14.5) % Plt Count 356 (140-400) K/mcL MPV 10.5 (9.4-12.4) fL Immature Gran % 0.8 (0-4) % Seg Neutrophils % 74.9 % Lymphocytes % 13.4 % Monocytes % 9.6 % Eosinophils % 1.0 % Basophils % 0.3 % Neutrophils # 13.6 H (1.6-8.9) K/mcL Lymphocytes # 2.4 (0.6-4.6) K/mcL Monocytes # 1.7 H (0.0-1.3) K/mcL Eosinophils # 0.2 (0.0-0.6) K/mcL Basophils # 0.1 (0.0-0.2) K/mcL Sodium 137 (136-145) mEq/L Potassium 3.2 L (3.5-5.1) mEq/L Chloride 101 (98-107) mEq/L Carbon Dioxide 28 (23-29) mEq/L BUN 10 (6-20) mg/dL Creatinine 0.74 (0.70-1.30) mg/dL Est GFR ( Amer) > 60 (> 60) Est GFR (Non-Af Amer) > 60 (> 60) BUN/Creatinine Ratio 14 (6-26) Glucose 140 H (70-105) mg/dL Calculated Osmolality 285 (280-300) Calcium 9.0 (8.6-10.3) mg/dL Total Bilirubin 0.5 (0.3-1.0) mg/dL Direct Bilirubin 0.1 (0.0-0.2) mg/dL Indirect Bilirubin 0.4 (0.0-1.2) mg/dL AST 13 (13-39) Units/L ALT 11 (7-52) Units/L Alkaline Phosphatase 76 (34-104) Units/L Serum Total Protein 7.5 (6.4-8.9) g/dL Albumin 3.8 (3.5-5.7) g/dL Globulin 3.7 H (2.4-3.5) g/dL Albumin/Globulin Ratio 1.0 L (1.1-2.2) Amylase 16 L (29-103) Units/L Lipase 14 (11-82) Units/L Urine Color Red A (Yellow) Urine Clarity Cloudy A (Clear) Urine pH 5.5 (5.0-8.0) pH Units Ur Specific [place] > 1.030 H (1.010-1.025) Urine Protein 30 H (Neg-Trace) mg/dL Urine Glucose (UA) Normal (Normal) mg/dL Urine Ketones Negative (Negative) mg/dL Urine Blood Large H (Negative) Urine Nitrite Negative (Negative) Urine Bilirubin Small H (Negative) Urine Urobilinogen Normal (Normal) mg/dL Ur Leukocyte Esterase Trace H (Negative) Urine Microscopic RBC TNTC H (0-3) per hpf Urine Microscopic WBC 5-15 H (0-3) per hpf Ur Squamous Epith Cells Many H (None-Few) per lpf Urine Bacteria None Seen (None-Few) per hpf Hyaline Casts None Seen (None-Few) per lpf Ur Culture Indicated? YES A (NO) - Radiology Data Radiology results reviewed: Yes I reviewed the patient's radiology results. Abdomen/Pelvis CT 09/24/17 17:12 IMPRESSION: The patient's right-sided abdominal and flank pain is probably secondary to irritation of the right hemidiaphragm secondary to pneumonia in the right lower lobe. That should be followed to resolution. There is evidence of inflammation/infection within the left lower lobe as well, albeit to a far lesser extent. No right-sided ureteral calculus is detected. Having said that, there is actually a punctate left-sided ureteral calculus detected in the distal left ureter at the ureterovesical junction, with slight left hydronephrosis and hydroureter, with periureteral fat stranding. Correlate with any clinical evidence of left flank pain. D/ / Kota Mancia MD / Kota Mancia MD Interpreting Provider: Kota Mancia MD
[2017-09-24 17:33] LABS: Basophils # 0.1 K/mcL (0.0-0.2); Basophils % 0.3 %; Eosinophils # 0.2 K/mcL (0.0-0.6); Hematocrit 42.4 % (37.5-50.1); Hemoglobin 14.4 g/dL (12.9-16.9); Immature Granulocytes % 0.8 % (0-4); Lymphocytes # 2.4 K/mcL (0.6-4.6); Lymphocytes % 13.4 %; Mean Corpuscular Hemoglobin 29.3 pg (28.0-33.3); Mean Corpuscular Volume 86.4 fL (83.0-100.0); Mean Platelet Volume 10.5 fL (9.4-12.4); Monocytes # 1.7 K/mcL (0.0-1.3); Monocytes % 9.6 %; Neutrophils # 13.6 K/mcL (1.6-8.9); Platelet Count 356 K/mcL (140-400); Red Blood Count 4.91 M/mcL (4.19-5.50); Red Cell Distribution Width 12.3 % (11.5-14.5); Segmented Neutrophils % 74.9 %
[2017-09-24 17:56] LABS: Alanine Aminotransferase 11 Units/L (7-52); Albumin 3.8 g/dL (3.5-5.7); Alkaline Phosphatase 76 Units/L (34-104); Amylase 16 Units/L (29-103); Aspartate Amino Transferase 13 Units/L (13-39); BUN/Creatinine Ratio 14 (6-26); Bilirubin,Direct 0.1 mg/dL (0.0-0.2); Bilirubin,Indirect 0.4 mg/dL (0.0-1.2); Bilirubin,Total 0.5 mg/dL (0.3-1.0); Blood Urea Nitrogen 10 mg/dL (6-20); Carbon Dioxide 28 mEq/L (23-29); Chloride 101 mEq/L (98-107); Globulin 3.7 g/dL (2.4-3.5); Glucose 140 mg/dL (70-105); Lipase 14 Units/L (11-82); Osmolality,Calculated 285 (280-300); Potassium 3.2 mEq/L (3.5-5.1); Sodium 137 mEq/L (136-145); Total Protein 7.5 g/dL (6.4-8.9); eGFR For African Americans > 60 (> 60); eGFR For Non-African Americans > 60 (> 60)
[2017-09-24] MEDS ORDERED: cefTRIAXone 1,000 MG in Water for inj. (sterile) 10 ML IVP ONE (18:26)
[2017-09-24] MEDS ORDERED: Azithromycin 500 MG in D5% in Water 250 ML IVPB ONE (18:26)
[2017-09-24] MEDS ORDERED: 0.9 % Sodium Chloride 1,000 ML IVC ONE ×2 (18:29→19:30)
--- NOTE | 2017-09-24 18:30 | Emergency Department Note ---
START Narrative - START START: I examined this patient and my medical decision-making was reviewed with the Resident Physician. I agree with the documented findings, disposition and treatment plan as described except to the extent set forth below. 42-year-old male presented to the emergency room with lower back pain. Patient thought he was having a kidney stone as he had these in the past. CT showed evidence of a right-sided pneumonia as well as a left basilar pneumonia as well. He does have a left sided distal ureteral stone. He had a slight fever here. I feel this is likely secondary to his pneumonia. He does not smoke. We will admit the patient for pain control as well as IV antibiotics with an infection in his lung as well as the urine. We will start him on Rocephin and Zithromax. Admit to hospitalist. IV fluids. No critical care time.
[2017-09-24] MEDS ORDERED: Naloxone 0.4 MG/ML INJ IVP PRN (22:33)
[2017-09-24] MEDS ORDERED: Ibuprofen 400 MG TABLET PO PRN (22:33)
[2017-09-24] MEDS ORDERED: Acetaminophen 325 MG TABLET PO PRN (22:33)
[2017-09-24] MEDS: GuaiFENesin Liq 200 MG/10 ML UDC PO PRN (22:45)
[2017-09-24] MEDS: 0.9 % Sodium Chloride 1,000 ML IVC SCH (22:53)
--- NOTE | 2017-09-25 00:02 | Internal Med History&Physical ---
Date of Encounter: 09/25/17 Time of Encounter: 23:30 Assessment and Plan (1) Pneumonia Current visit: Yes Status: Acute CAP, likely secondary to viral illness. - Ceftriaxone and azithromycin given in ED, patient tolerated ceftriaxone so will continue (pt has PCN allergy) - Blood cultures pending - Urine legionella and strep pneumo pending - Tylenol for fever Qualifiers: Pneumonia type: due to unspecified organism Laterality: bilateral Lung location: lower lobe of lung Qualified Code(s): J18.9 - Pneumonia, unspecified organism (2) Ureterolithiasis Current visit: No Status: Acute Right flank pain - likely secondary to passed stone (hematuria). Has left sided stone which is small. - IV fluids - Pain medications (3) Left elbow pain Current visit: Yes Status: Acute Unclear etiology - patient denies injury to elbow. Not edematous or erythematous , although severe pain with extension concerns me for possibility of septic arthritis. - Ceftriaxone in ED - Consider adding vancomycin if patient clinically worsens and consult ortho in AM. Fevers and leukocytosis likely secondary to pneumonia. (4) DVT prophylaxis Current visit: No Status: Acute SQ heparin Internal Medicine - H&P: HPI Chief complaint: Shortness of breath, cough, right flank pain Admitted From: Emergency Dept Plans for Post Hospital Care: Home History of present illness: Mr. Romano is a 42 year old male with history of nephrolithiasis who presented to the ED this evening with complaint of cough, shortness of breath and right- sided flank pain. He states that he has had cough for two weeks along with fever that had gotten better but has now returned for the past several days. He has been coughing up bright green sputum and has felt short of breath. For the past three days he has had right sided flank pain. He also noticed left elbow pain whihc is exacerbated by extending the elbow - it began this morning and has worsened. He denies ever having surgery to that joint. CT abdomen and pelvis in the ED showed no obstructing renal stone but did show evidence of right lower lobe pneumonia and trace left lower lobe pneumonia. Past Med Surg Social Fam HX - Past Medical History Medical history: kidney stones Psychiatric history: no psych history - Social History Smoking Status: Never smoker Smokeless Tobacco Status: Yes Alcohol use: none Drug use: marijuana - Family History Father Living Status: Mother Living Status: Still Living Hx Family Endocrine Disorder: Yes (Diabetes) Internal Medicine - H&P: Meds No Known Home Drugs 09/24/17 [History] 3 Allergy/AdvReac Type Severity Reaction Status Date / Time Hydromorphone [From Dilaudid] Allergy Swelling Verified 07/11/17 09:48 of Lip/Tongue/Throat Penicillins Allergy Hives Verified 07/11/17 09:48 Sulfa (Sulfonamide Allergy Hives Verified 07/11/17 09:48 Antibiotics) tramadol [From Ultram] Allergy Swelling Verified 07/11/17 09:48 of Lip/Tongue/Throat All Systems PM: A 10-system review of systems was performed and is negative for pertinent findings except as documented above in the HPI. - Constitutional Vitals: Temp Pulse Resp BP Pulse Ox 98.8 F 90 16 120/75 94 09/24/17 23:13 09/24/17 23:13 09/24/17 23:13 09/24/17 23:13 09/24/17 23:13 General appearance: Present: A&O X 3, no acute distress - Head Head exam: Present: atraumatic - Eye Eye exam: Present: EOMI, sclera anicteric - ENT ENT exam: Present: mucous membranes moist - Neck Neck exam general surgery: Present: supple - Respiratory Respiratory exam: Present: CTAB - Cardiovascular Cardiovascular exam: Present: RRR. Absent: diastolic murmur, gallop, rubs, systolic murmur - GI/Abdominal GI/Abdominal exam: Present: normal bowel sounds, soft. Absent: distended, tenderness - Extremities Exam Extremities exam: Absent: pedal edema Additional comments: Right elbow with tenderness to palpation along medial side, pain worsened with passive extension of the elbow. No erythema or edema appreciated. - Neurological Exam Neurological exam: Present: no focal deficits - Skin Skin exam: Absent: rash Internal Med - H&P Results - Labs CBC & Chem 7: 09/24/17 17:25 09/24/17 17:25
[2017-09-25] MEDS: *HR* HYDROcodone/Acet 5/325 mg TABLET PO PRN (05:15)
[2017-09-25] MEDS: GuaiFENesin Liq 200 MG/10 ML UDC PO PRN (05:15)
[2017-09-25] MEDS: *HR* Heparin 5,000 UNIT/ML VIAL SQ SCH ×3 (05:16→20:49)
[2017-09-25 06:00] LABS: BUN/Creatinine Ratio 9 (6-26); Basophils # 0.1 K/mcL (0.0-0.2); Basophils % 0.3 %; Blood Urea Nitrogen 6 mg/dL (6-20); Calcium 8.2 mg/dL (8.6-10.3); Carbon Dioxide 26 mEq/L (23-29); Chloride 106 mEq/L (98-107); Eosinophils # 0.2 K/mcL (0.0-0.6); Eosinophils % 1.2 %; Glucose 135 mg/dL (70-105); Hematocrit 38.7 % (37.5-50.1); Hemoglobin 12.8 g/dL (12.9-16.9); Immature Granulocytes % 0.8 % (0-4); Lymphocytes # 2.2 K/mcL (0.6-4.6); Lymphocytes % 12.2 %; Mean Corpuscular HGB Conc 33.1 g/dL (31.6-35.5); Mean Corpuscular Volume 87.6 fL (83.0-100.0); Mean Platelet Volume 10.7 fL (9.4-12.4); Monocytes # 1.7 K/mcL (0.0-1.3); Monocytes % 9.2 %; Osmolality,Calculated 284 (280-300); Platelet Count 332 K/mcL (140-400); Potassium 3.5 mEq/L (3.5-5.1); Red Blood Count 4.42 M/mcL (4.19-5.50); Red Cell Distribution Width 12.4 % (11.5-14.5); Segmented Neutrophils % 76.3 %; Sodium 137 mEq/L (136-145); eGFR For African Americans > 60 (> 60); eGFR For Non-African Americans > 60 (> 60)
[2017-09-25] MEDS: cefTRIAXone 1,000 MG in Water for inj. (sterile) 10 ML IVP SCH (08:44)
[2017-09-25] MEDS: *HR* Morphine 2 MG/ML SYRINGE IVP PRN ×4 (09:00→20:50)
[2017-09-25] MEDS: 0.9 % Sodium Chloride 1,000 ML IVC SCH (10:24)
--- NOTE | 2017-09-25 17:02 | Internal Med Progress Note ---
Date of Encounter: 09/25/17 Time of Encounter: 17:00 - Assessment and plan (1) Pneumonia Current Visit: Yes Status: Acute Assessment and plan: Reviewed CT of Chest results cont empirical abx Rocephin + Azithromycin Duoneb + O2 no need of steroids Qualifiers: Pneumonia type: due to unspecified organism Laterality: bilateral Lung location: lower lobe of lung Qualified Code(s): J18.9 - Pneumonia, unspecified organism (2) Ureterolithiasis Current Visit: No Status: Acute Assessment and plan: He does have Left ureter stone ?? Passing stone on Rt side.. with Rt flank tenderness IV analgesics IV fluids Urology consulted (3) Left elbow pain Current Visit: Yes Status: Acute Assessment and plan: Could be due bursitis Heat / Ice compressions IV analgesics will obtain X ray of Elbow - Subjective Interval history: Mr. Romano is a 42 year old male with history of nephrolithiasis who presented to the ED with complaint of cough, shortness of breath and right-sided flank pain. He states that he has had cough for two weeks along with fever that had gotten better but has now returned for the past several days. He has been coughing up bright green sputum and has felt short of breath. For the past three days he has had right sided flank pain. He also noticed left elbow pain which is exacerbated by extending the elbow. He denies ever having surgery to that joint. CT abdomen and pelvis in the ED showed no obstructing renal stone but did show evidence of right lower lobe pneumonia and trace left lower lobe pneumonia. Pt denied any CP /SOB. Still has cough +.. Still has Rt flank pain.. tolerable with medications - Constitutional Vitals: Temp Pulse Resp BP Pulse Ox 99.2 F 80 15 133/76 93 09/25/17 11:19 09/25/17 11:19 09/25/17 11:19 09/25/17 11:19 09/25/17 11:19 General appearance: Present: A&O X 3, no acute distress, answers questions appropriately - Head Head exam: Present: atraumatic, normal inspection - Neck Neck exam general surgery: Present: supple - Respiratory Respiratory exam: Present: decreased breath sounds. Absent: rales, respiratory distress, rhonchi, wheezes - Cardiovascular Cardiovascular exam: Present: RRR, +S1, +S2. Absent: tachycardia - GI/Abdominal GI/Abdominal exam: Present: normal bowel sounds, soft. Absent: rebound, rigid, tenderness - Extremities Exam Extremities exam: Present: tenderness (Left elbow posteriory..mild swelling.. no erythema noticed). Absent: pedal edema - Back Exam Back exam: Absent: CVA tenderness (L), CVA tenderness (R) - Psychiatric Psychiatric exam: Present: normal affect, normal mood Internal Medicine: Result - Labs CBC & Chem 7: 09/25/17 05:28 09/25/17 05:28 Labs: Short CBC 09/25/17 Range/Units 05:28 WBC 18.3 H (4.3-11.1) K/mcL Hgb 12.8 L D (12.9-16.9) g/dL Hct 38.7 (37.5-50.1) % Plt Count 332 (140-400) K/mcL Neutrophils # 14.0 H (1.6-8.9) K/mcL BMP 09/25/17 05:28 Sodium 137 Potassium 3.5 Chloride 106 Carbon Dioxide 26 BUN 6 Creatinine 0.67 L Glucose 135 H Calcium 8.2 L Consult Discharge Plan - Plan Referrals: NONE,PCP [Primary Care Provider] -
--- NOTE | 2017-09-25 17:20 | Urology - Consult Note ---
Date of Encounter: 09/25/17 Time of Encounter: 17:18 - Assessment and Plan (1) Kidney stone on left side Current Visit: Yes Status: Acute Assessment and plan: 42-year-old man with a distal left ureteral stone was admitted for possible right pneumonia. There is some mild left hydronephrosis. His urine culture was negative from September 24, 2017. His pain seems to be adequately controlled. Given the size of the stone, I think it would be reasonable to see if he can pass this. Also with the pneumonia, he is at higher risk for further pulmonary issues with a general anesthetic. I will follow along. Please call with any questions. Urology CN:HPI Consult date: 09/25/17 Reason for consult Urology: Other (Left ureteral stone) History of present illness: 42-year-old man was admitted for right flank pain. He is also noted some left flank pain and left orchialgia. A CT scan was performed which showed concern for pneumonia and there is also a small stone in his distal left ureter. He has a known history of kidney stones and in July 2017 underwent a right ureteroscopic stone extraction by Dr. Stanton. He says his current pain is somewhat sharp. It is worse on the right side as compared to the left. It is somewhat intermittent. Past Med Surg Social Fam HX - Past Medical History Medical history: kidney stones Psychiatric history: no psych history - Social History Smoking Status: Never smoker Smokeless Tobacco Status: Yes Alcohol use: none Drug use: marijuana - Family History Father Living Status: Mother Living Status: Still Living Hx Family Endocrine Disorder: Yes (Diabetes) Medications and Allergies No Known Home Drugs 09/24/17 [History] 3 Allergy/AdvReac Type Severity Reaction Status Date / Time Hydromorphone [From Dilaudid] Allergy Swelling Verified 07/11/17 09:48 of Lip/Tongue/Throat Penicillins Allergy Hives Verified 07/11/17 09:48 Sulfa (Sulfonamide Allergy Hives Verified 07/11/17 09:48 Antibiotics) tramadol [From Ultram] Allergy Swelling Verified 07/11/17 09:48 of Lip/Tongue/Throat Review of Systems - Constitutional no chills, no fever(s) - EENT Nose, mouth and throat: no dizziness - Cardiovascular no chest pain - Respiratory no dyspnea - Gastrointestinal no nausea, no vomiting - Genitourinary flank pain, no hematuria - Musculoskeletal no back pain - Integumentary no erythema, no rash - Neurological no weakness - Psychiatric no suicidal ideation - Hematologic/Lymphatic no easy bleeding - Allergic/Immunologic no wheezing Exam Initial Vital Signs Temp Pulse Resp BP Pulse Ox 100.3 F H 93 18 144/88 96 09/24/17 13:38 09/24/17 13:38 09/24/17 13:38 09/24/17 13:38 09/24/17 13:38 - General physical appearance Present: well developed, well nourished, no distress - Eyes Absent: icteric - ENT Present: normal nares - Neck Present: trachea midline - Respiratory Present: normal respiratory effort - Cardiovascular Cardiovascular exam IM: RRR - Abdomen Abdomen: Present: soft - Genitourinary normal penis with no external lesions, testicles non-tender, other (No testicular masses noted) Urology Results - Labs 09/25/17 05:28 09/25/17 05:28 Abnormal lab results WBC 18.3 K/mcL (4.3-11.1) H 09/25/17 05:28 Hgb 12.8 g/dL (12.9-16.9) L D 09/25/17 05:28 Neutrophils # 14.0 K/mcL (1.6-8.9) H 09/25/17 05:28 Monocytes # 1.7 K/mcL (0.0-1.3) H 09/25/17 05:28 Creatinine 0.67 mg/dL (0.70-1.30) L 09/25/17 05:28 Glucose 135 mg/dL (70-105) H 09/25/17 05:28 Calcium 8.2 mg/dL (8.6-10.3) L 09/25/17 05:28 Globulin 3.7 g/dL (2.4-3.5) H 09/24/17 17:25 Albumin/Globulin Ratio 1.0 (1.1-2.2) L 09/24/17 17:25 Amylase 16 Units/L (29-103) L 09/24/17 17:25 Urine Color Red (Yellow) A 09/24/17 14:07 Urine Clarity Cloudy (Clear) A 09/24/17 14:07 Ur Specific [place] > 1.030 (1.010-1.025) H 09/24/17 14:07 Urine Protein 30 mg/dL (Neg-Trace) H 09/24/17 14:07 Urine Blood Large (Negative) H 09/24/17 14:07 Urine Bilirubin Small (Negative) H 09/24/17 14:07 Ur Leukocyte Esterase Trace (Negative) H 09/24/17 14:07 Urine Microscopic RBC TNTC per hpf (0-3) H 09/24/17 14:07 Urine Microscopic WBC 5-15 per hpf (0-3) H 09/24/17 14:07 Ur Squamous Epith Cells Many per lpf (None-Few) H 09/24/17 14:07 Ur Culture Indicated? YES (NO) A 09/24/17 14:07 Diabetes panel 09/25/17 Range/Units 05:28 Sodium 137 (136-145) mEq/L Potassium 3.5 (3.5-5.1) mEq/L Chloride 106 (98-107) mEq/L Carbon Dioxide 26 (23-29) mEq/L BUN 6 (6-20) mg/dL Creatinine 0.67 L (0.70-1.30) mg/dL Glucose 135 H (70-105) mg/dL Calcium 8.2 L (8.6-10.3) mg/dL Calcium panel 09/25/17 Range/Units 05:28 Calcium 8.2 L (8.6-10.3) mg/dL Pituitary panel 09/25/17 Range/Units 05:28 Sodium 137 (136-145) mEq/L Potassium 3.5 (3.5-5.1) mEq/L Chloride 106 (98-107) mEq/L Carbon Dioxide 26 (23-29) mEq/L BUN 6 (6-20) mg/dL Creatinine 0.67 L (0.70-1.30) mg/dL Glucose 135 H (70-105) mg/dL Calcium 8.2 L (8.6-10.3) mg/dL Adrenal panel 09/25/17 Range/Units 05:28 Sodium 137 (136-145) mEq/L Potassium 3.5 (3.5-5.1) mEq/L Chloride 106 (98-107) mEq/L Carbon Dioxide 26 (23-29) mEq/L BUN 6 (6-20) mg/dL Creatinine 0.67 L (0.70-1.30) mg/dL Glucose 135 H (70-105) mg/dL Calcium 8.2 L (8.6-10.3) mg/dL All other labs normal. - Imaging CT scan - abdomen: report reviewed, image reviewed CT scan - pelvis: report reviewed, image reviewed Consult Discharge Plan - Plan Referrals: NONE,PCP [Primary Care Provider] -
[2017-09-25] MEDS: Ipratropium/Albuterol Neb 3 ML IH SCH ×3 (19:35→23:16)
[2017-09-25] MEDS: Azithromycin 500 MG in D5% in Water 250 ML IVPB SCH (20:48)
[2017-09-26] MEDS: Ipratropium/Albuterol Neb 3 ML IH SCH ×5 (04:01→20:14)
[2017-09-26] MEDS: *HR* Heparin 5,000 UNIT/ML VIAL SQ SCH ×3 (05:55→21:04)
[2017-09-26] MEDS: *HR* Morphine 2 MG/ML SYRINGE IVP PRN ×4 (05:56→23:19)
[2017-09-26 06:19] LABS: Basophils % 0.4 %; Eosinophils # 0.3 K/mcL (0.0-0.6); Eosinophils % 2.5 %; Hematocrit 37.7 % (37.5-50.1); Hemoglobin 12.8 g/dL (12.9-16.9); Immature Granulocytes % 1.1 % (0-4); Lymphocytes # 2.3 K/mcL (0.6-4.6); Lymphocytes % 20.3 %; Mean Corpuscular Hemoglobin 29.2 pg (28.0-33.3); Mean Corpuscular Volume 86.1 fL (83.0-100.0); Mean Platelet Volume 10.7 fL (9.4-12.4); Monocytes # 1.3 K/mcL (0.0-1.3); Monocytes % 11.3 %; Neutrophils # 7.2 K/mcL (1.6-8.9); Platelet Count 324 K/mcL (140-400); Red Blood Count 4.38 M/mcL (4.19-5.50); Red Cell Distribution Width 12.4 % (11.5-14.5); Segmented Neutrophils % 64.4 %
[2017-09-26 07:00] LABS: BUN/Creatinine Ratio 6 (6-26); Blood Urea Nitrogen 4 mg/dL (6-20); Calcium 8.4 mg/dL (8.6-10.3); Carbon Dioxide 26 mEq/L (23-29); Chloride 108 mEq/L (98-107); Glucose 105 mg/dL (70-105); Osmolality,Calculated 285 (280-300); Potassium 3.5 mEq/L (3.5-5.1); Sodium 139 mEq/L (136-145); eGFR For African Americans > 60 (> 60); eGFR For Non-African Americans > 60 (> 60)
[2017-09-26] MEDS ORDERED: Azithromycin 500 MG in D5% in Water 250 ML IVPB SCH (09:00)
[2017-09-26] MEDS: cefTRIAXone 1,000 MG in Water for inj. (sterile) 10 ML IVP SCH (09:27)
[2017-09-26] MEDS: *HR* HYDROcodone/Acet 5/325 mg TABLET PO PRN ×3 (09:28→21:27)
[2017-09-26] MEDS ORDERED: MethylPREDNISolone 40 MG/ML VIAL IVP SCH ×2 (12:00→16:45)
--- NOTE | 2017-09-26 12:54 | Urology Progress Note ---
Date of Encounter: 09/26/17 Time of Encounter: 07:00 - Assessment and Plan (1) Kidney stone on left side Current Visit: Yes Status: Acute Assessment and plan: He has a small distal left ureteral stone. We will see if he can pass it. Pain is still present on the right side. Creatinine is normal. Will follow along. Progress Note Narrative: Doing okay today. Still with some right upper quadrant pain. Objective Initial Vital Signs Temp Pulse Resp BP Pulse Ox 100.3 F H 93 18 144/88 96 09/24/17 13:38 09/24/17 13:38 09/24/17 13:38 09/24/17 13:38 09/24/17 13:38 - General physical appearance Present: well developed, well nourished, no distress - Respiratory Present: normal respiratory effort - Abdomen Present: soft - Labs 09/26/17 05:35 09/26/17 05:35 Diabetes panel 09/26/17 Range/Units 05:35 Sodium 139 (136-145) mEq/L Potassium 3.5 (3.5-5.1) mEq/L Chloride 108 H (98-107) mEq/L Carbon Dioxide 26 (23-29) mEq/L BUN 4 L (6-20) mg/dL Creatinine 0.63 L (0.70-1.30) mg/dL Glucose 105 (70-105) mg/dL Calcium 8.4 L (8.6-10.3) mg/dL Calcium panel 09/26/17 Range/Units 05:35 Calcium 8.4 L (8.6-10.3) mg/dL Pituitary panel 09/26/17 Range/Units 05:35 Sodium 139 (136-145) mEq/L Potassium 3.5 (3.5-5.1) mEq/L Chloride 108 H (98-107) mEq/L Carbon Dioxide 26 (23-29) mEq/L BUN 4 L (6-20) mg/dL Creatinine 0.63 L (0.70-1.30) mg/dL Glucose 105 (70-105) mg/dL Calcium 8.4 L (8.6-10.3) mg/dL Adrenal panel 09/26/17 Range/Units 05:35 Sodium 139 (136-145) mEq/L Potassium 3.5 (3.5-5.1) mEq/L Chloride 108 H (98-107) mEq/L Carbon Dioxide 26 (23-29) mEq/L BUN 4 L (6-20) mg/dL Creatinine 0.63 L (0.70-1.30) mg/dL Glucose 105 (70-105) mg/dL Calcium 8.4 L (8.6-10.3) mg/dL Consult Discharge Plan - Plan Referrals: NONE,PCP [Primary Care Provider] -
--- NOTE | 2017-09-26 16:47 | Internal Med Progress Note ---
Date of Encounter: 09/26/17 Time of Encounter: 11:30 - Assessment and plan (1) Pneumonia Current Visit: Yes Status: Acute Assessment and plan: Reviewed CT of Chest results His pneumonia - mostly bacterial cont empirical abx Rocephin + Azithromycin Duoneb + O2 Since he does have significant wheezing and still feeling SOB Started him on IV steroids today His Rt flank pain also mostly due to his severe Rt side pneumonia He does need to stay in the hospital more than 2 nights and need close monitoring due to multiple coplex medical problems so will change him to full admission today I did review Dr. Smart's H& P including HPI, PMH, PSH, FH, SH and ROS, no changes noticed Qualifiers: Pneumonia type: due to unspecified organism Laterality: bilateral Lung location: lower lobe of lung Qualified Code(s): J18.9 - Pneumonia, unspecified organism (2) Ureterolithiasis Current Visit: No Status: Acute Assessment and plan: He does have Left ureter stone ?? Passing stone on Rt side.. with Rt flank tenderness IV analgesics IV fluids Urology on board (3) Left elbow pain Current Visit: Yes Status: Acute Assessment and plan: Could be due bursitis Heat / Ice compressions IV analgesics Reviewed X ray of Elbow - no acute pathology noticed - Subjective Interval history: Mr. Romano is a 42 year old male with history of nephrolithiasis who presented to the ED with complaint of cough, shortness of breath and right-sided flank pain. He states that he has had cough for two weeks along with fever that had gotten better but has now returned for the past several days. He has been coughing up bright green sputum and has felt short of breath. For the past three days he has had right sided flank pain. He also noticed left elbow pain which is exacerbated by extending the elbow. He denies ever having surgery to that joint. CT abdomen and pelvis in the ED showed no obstructing renal stone but did show evidence of right lower lobe pneumonia and trace left lower lobe pneumonia. Pt denied any CP. Does co mild to moderate SOB and GOMEZ. Still feels very sick. Rt flank pain + - Constitutional Vitals: Temp Pulse Resp BP Pulse Ox 97.6 F 94 16 158/89 97 09/26/17 14:54 09/26/17 14:54 09/26/17 14:54 09/26/17 14:54 09/26/17 14:54 General appearance: Present: A&O X 3, no acute distress, answers questions appropriately - Head Head exam: Present: atraumatic, normal inspection - Neck Neck exam general surgery: Present: supple - Respiratory Respiratory exam: Present: decreased breath sounds, wheezes (moderate). Absent : rales, respiratory distress, rhonchi - Cardiovascular Cardiovascular exam: Present: RRR, +S1, +S2. Absent: tachycardia - GI/Abdominal GI/Abdominal exam: Present: normal bowel sounds, soft. Absent: rebound, rigid, tenderness - Extremities Exam Extremities exam: Absent: calf tenderness, pedal edema, tenderness - Back Exam Back exam: Present: CVA tenderness (R). Absent: CVA tenderness (L) - Neurological Exam Neurological exam: Present: alert, oriented X3 - Psychiatric Psychiatric exam: Present: normal affect, normal mood Internal Medicine: Result - Labs CBC & Chem 7: 09/26/17 05:35 09/26/17 05:35 Labs: Short CBC 09/26/17 Range/Units 05:35 WBC 11.1 (4.3-11.1) K/mcL Hgb 12.8 L (12.9-16.9) g/dL Hct 37.7 (37.5-50.1) % Plt Count 324 (140-400) K/mcL Neutrophils # 7.2 (1.6-8.9) K/mcL BMP 09/26/17 05:35 Sodium 139 Potassium 3.5 Chloride 108 H Carbon Dioxide 26 BUN 4 L Creatinine 0.63 L Glucose 105 Calcium 8.4 L - Impressions Impressions Elbow X-Ray 09/25/17 17:06 IMPRESSION: 1. No radiographic abnormality to account for patient's left elbow pain. D/ / Nathan Almanza MD / Nathan Almanza MD Interpreting Provider: Nathan Almanza MD Consult Discharge Plan - Plan Referrals: NONE,PCP [Primary Care Provider] -
[2017-09-26] MEDS: MethylPREDNISolone 40 MG/ML VIAL IVP SCH ×2 (17:35→23:11)
[2017-09-26] MEDS: Azithromycin 500 MG in D5% in Water 250 ML IVPB SCH (21:03)
[2017-09-27] MEDS: Ipratropium/Albuterol Neb 3 ML IH SCH ×4 (00:09→11:01)
[2017-09-27] MEDS: MethylPREDNISolone 40 MG/ML VIAL IVP SCH ×2 (04:57→11:14)
[2017-09-27] MEDS: *HR* Heparin 5,000 UNIT/ML VIAL SQ SCH (04:58)
[2017-09-27] MEDS: *HR* Morphine 2 MG/ML SYRINGE IVP PRN ×2 (05:08→11:14)
[2017-09-27] MEDS: *HR* HYDROcodone/Acet 5/325 mg TABLET PO PRN ×2 (08:07→12:18)
[2017-09-27] MEDS: cefTRIAXone 1,000 MG in Water for inj. (sterile) 10 ML IVP SCH (08:08)
[2017-09-27 10:47] VITALS: BP 144/74
--- NOTE | 2017-09-27 11:52 | Discharge Summary ---
Date of Encounter: 09/27/17 Time of Encounter: 11:50 - Discharge Diagnosis (1) Pneumonia Priority: Primary Status: Acute Qualifiers: Pneumonia type: due to unspecified organism Laterality: bilateral Lung location: lower lobe of lung Qualified Code(s): J18.9 - Pneumonia, unspecified organism (2) Ureterolithiasis Priority: Primary Status: Acute (3) Left elbow pain Priority: Secondary Status: Acute - Discharge Medications Prescriptions: Albuterol Sulfate [Albuterol Inhaler] 2 puff IH Q6HR PRN #1 [email or web address] PRN Reason: Shortness Of Breath HYDROcodone/Acet 5/325 mg [[place] 5-325 mg] 1 tab PO Q6HR PRN #15 tablet PRN Reason: Moderate Pain (4-6) levoFLOXacin [Levofloxacin] 750 mg PO DAILY #4 tablet predniSONE [PredniSONE] 40 mg PO DAILY #10 tablet Home Medications: Albuterol Sulfate [Albuterol Inhaler] 2 puff IH Q6HR PRN #1 [email or web address] 09/27/17 [Rx] HYDROcodone/Acet 5/325 mg [[place] 5-325 mg] 1 tab PO Q6HR PRN #15 tablet [Rx] levoFLOXacin [Levofloxacin] 750 mg PO DAILY #4 tablet 09/27/17 [Rx] predniSONE [PredniSONE] 40 mg PO DAILY #10 tablet 09/27/17 [Rx] Allergies/Adverse Reactions: 3 Allergy/AdvReac Type Severity Reaction Status Date / Time Hydromorphone [From Dilaudid] Allergy Swelling Verified 07/11/17 09:48 of Lip/Tongue/Throat Penicillins Allergy Hives Verified 07/11/17 09:48 Sulfa (Sulfonamide Allergy Hives Verified 07/11/17 09:48 Antibiotics) tramadol [From Ultram] Allergy Swelling Verified 07/11/17 09:48 of Lip/Tongue/Throat Date of admission: 09/26/17 16:41 Primary care physician: PCP NONE - Patient Status Disposition: Home, Self-Care Condition: Good Overall status at discharge: patient is back to baseline - Discharge Instructions Follow Up With: NONE,PCP [Primary Care Provider] - Nicolas Carrera MD [Partnered Physician] - - Diet and Activity Activity: increase activity as tolerated Hospital course: Mr. Romano is a 42 year old male with history of nephrolithiasis who presented to the ED with complaint of cough, shortness of breath and right-sided flank pain. He states that he has had cough for two weeks along with fever that had gotten better but has now returned for the past several days. He has been coughing up bright green sputum and has felt short of breath. For the past three days he has had right sided flank pain. He also noticed left elbow pain which is exacerbated by extending the elbow. He denies ever having surgery to that joint. CT abdomen and pelvis in the ED showed no obstructing renal stone but did show evidence of right lower lobe pneumonia and trace left lower lobe pneumonia. Pt was admitted in the hospital and started him on empirical abx Rocephin + Azithromycin. His symptoms started improving slowly. He did c/o severe Rt flank pain seems to be most likely due to Rt side pneumonia. He did c/o Left elbow pain could be due to mild bursitis, his X ray of elbow did not show any acute pathology. His CT of Abd showed a small Left distal ureter non obstructing stone. Pt was evaluated by urologist, who recommend to cont supportive care and f/u with urology as an out pt. Pt did have moderate wheezing too so started him on IV steroids. His breathing is better and currently on RA. So will d/c him home in stable condition today. - Time Spent with Patient Total time spent providing and/or coordinating discharge services: - Constitutional Vitals: Temp Pulse Resp BP Pulse Ox 97.6 F 92 16 144/74 95 09/27/17 10:28 09/27/17 10:28 09/27/17 11:01 09/27/17 10:28 09/27/17 11:01 General appearance: Present: A&O X 3, no acute distress, answers questions appropriately - Head Head exam: Present: atraumatic, normal inspection - Neck Neck exam general surgery: Present: supple - Cardiovascular Cardiovascular exam: Present: RRR, +S1, +S2. Absent: tachycardia - GI/Abdominal GI/Abdominal exam: Present: normal bowel sounds, soft. Absent: rebound, rigid, tenderness - Neurological Exam Neurological exam: Present: alert, oriented X3
== END 2017-09-27 13:31 | disposition home or self-care (01) | DRG 139 ==
LOC: EMEROO 13:23 → 3ANU 13:23 → SUATTDRO 19:49 → 3ANU 20:09
PROVIDERS: ADMIT Internal Medicine; ATTEND Family Medicine

== ENCOUNTER 2019-09-17 14:38 | Observation (INO) ==
[2019-09-17 16:32] LABS: Basophils # 0.2 K/mcL (0.0-0.2); Basophils % 1.2 %; Eosinophils # 0.1 K/mcL (0.0-0.6); Eosinophils % 0.4 %; Hematocrit 48.6 % (37.5-50.1); Hemoglobin 17.2 g/dL (12.9-16.9); Immature Granulocytes % 3.7 % (0-4); Lymphocytes # 3.2 K/mcL (0.6-4.6); Mean Corpuscular HGB Conc 35.4 g/dL (31.6-35.5); Mean Corpuscular Hemoglobin 30.1 pg (28.0-33.3); Mean Platelet Volume 10.9 fL (9.4-12.4); Monocytes % 10.6 %; Neutrophils # 12.5 K/mcL (1.6-8.9); Platelet Count 307 K/mcL (140-400); Red Blood Count 5.72 M/mcL (4.19-5.50); Red Cell Distribution Width 12.4 % (11.5-14.5); Segmented Neutrophils % 67.1 %; White Blood Count 18.7 K/mcL (4.3-11.1)
[2019-09-17] MEDS ORDERED: GI Cocktail 40 ML EACH PO ONE (16:47)
[2019-09-17] MEDS ORDERED: Nitroglycerin 0.4 MG TAB.SUBL SL PRN (16:47)
[2019-09-17] MEDS ORDERED: Aspirin 81 MG TAB.CHEW PO STA (16:47)
[2019-09-17] MEDS ORDERED: 0.9 % Sodium Chloride 1,000 ML IVC ONE (16:48)
[2019-09-17 16:53] LABS: BUN/Creatinine Ratio 25 (6-26); Blood Urea Nitrogen 19 mg/dL (6-20); Calcium 9.8 mg/dL (8.6-10.3); Carbon Dioxide 24 mEq/L (23-29); Chloride 101 mEq/L (98-107); Glucose 161 mg/dL (70-105); Osmolality,Calculated 288 (280-300); Sodium 136 mEq/L (136-145); Troponin I < 0.03 ng/mL (< 0.04); eGFR For African Americans > 60 (> 60); eGFR For Non-African Americans > 60 (> 60)
[2019-09-17 17:16] LABS: Alanine Aminotransferase 31 Units/L (7-52); Albumin 4.4 g/dL (3.5-5.7); Albumin/Globulin Ratio 1.3 (1.1-2.2); Alkaline Phosphatase 74 Units/L (34-104); Aspartate Amino Transferase 20 Units/L (13-39); Bilirubin,Direct 0.1 mg/dL (0.0-0.2); Bilirubin,Indirect 0.3 mg/dL (0.0-1.0); Bilirubin,Total 0.4 mg/dL (0.3-1.0); Globulin 3.3 g/dL (2.4-3.5); Lipase 131 Units/L (11-82); Total Protein 7.7 g/dL (6.4-8.9)
[2019-09-17] MEDS ORDERED: *HR* FentaNYL (PF) 100 MCG/2 ML VIAL IVP STA (18:43)
[2019-09-17] MEDS ORDERED: Ketorolac 15 MG/ML VIAL IVP ONE (18:56)
[2019-09-17] MEDS ORDERED: Naloxone 0.4 MG/ML INJ IVP PRN (21:58)
[2019-09-17] MEDS: *HR* Heparin 5,000 UNIT/ML VIAL SQ SCH (22:45)
[2019-09-18 01:04] LABS: Basophils # 0.1 K/mcL (0.0-0.2); Basophils % 0.9 %; Eosinophils # 0.2 K/mcL (0.0-0.6); Eosinophils % 1.1 %; Hematocrit 45.1 % (37.5-50.1); Hemoglobin 15.9 g/dL (12.9-16.9); Immature Granulocytes % 3.3 % (0-4); Lymphocytes # 4.1 K/mcL (0.6-4.6); Lymphocytes % 30.2 %; Mean Corpuscular HGB Conc 35.3 g/dL (31.6-35.5); Mean Corpuscular Hemoglobin 30.3 pg (28.0-33.3); Mean Corpuscular Volume 86.1 fL (83.0-100.0); Monocytes # 1.1 K/mcL (0.0-1.3); Monocytes % 8.2 %; Neutrophils # 7.7 K/mcL (1.6-8.9); Platelet Count 261 K/mcL (140-400); Red Blood Count 5.24 M/mcL (4.19-5.50); Red Cell Distribution Width 12.5 % (11.5-14.5); Segmented Neutrophils % 56.3 %; White Blood Count 13.7 K/mcL (4.3-11.1)
[2019-09-18 01:08] LABS: INR 1.1; Prothrombin Time 12.6 Seconds (9.4-12.1)
[2019-09-18 01:11] LABS: Activated Partial Thrombo Time 25.8 Seconds (26.0-36.0)
[2019-09-18 01:32] LABS: Alanine Aminotransferase 26 Units/L (7-52); Albumin 3.8 g/dL (3.5-5.7); Albumin/Globulin Ratio 1.4 (1.1-2.2); Alkaline Phosphatase 63 Units/L (34-104); Aspartate Amino Transferase 16 Units/L (13-39); BUN/Creatinine Ratio 22 (6-26); Bilirubin,Total 0.5 mg/dL (0.3-1.0); Blood Urea Nitrogen 24 mg/dL (6-20); Calcium 8.6 mg/dL (8.6-10.3); Carbon Dioxide 23 mEq/L (23-29); Chloride 101 mEq/L (98-107); Chol/HDL Ratio 4.1 (0-4.9); Cholesterol 140 mg/dL (< 200); Globulin 2.8 g/dL (2.4-3.5); Glucose 253 mg/dL (70-105); HDL Cholesterol 34 mg/dL (40-59); LDL Cholesterol,Calculated 67 mg/dL (0-99); Osmolality,Calculated 295 (280-300); Potassium 3.4 mEq/L (3.5-5.1); Sodium 136 mEq/L (136-145); Total Protein 6.6 g/dL (6.4-8.9); Triglycerides 195 mg/dL (< 150); Troponin I < 0.03 ng/mL (< 0.04); eGFR For African Americans > 60 (> 60); eGFR For Non-African Americans > 60 (> 60)
[2019-09-18] MEDS: *HR* Heparin 5,000 UNIT/ML VIAL SQ SCH ×3 (01:48→21:27)
[2019-09-18 03:55] LABS: Estimated Average Glucose 157 mg/dl
[2019-09-18] MEDS ORDERED: Perflutren Lipid Microsphere 1.3 ML in 0.9 % Sodium Chloride 8.7 ML IVP ONE (07:04)
[2019-09-18 18:05] LABS: Amphetamine Screen,Urine Negative ng/mL (Cutoff=1000); Barbiturate Screen,Urine Negative ng/mL (Cutoff=200); Benzodiazepines Screen,Urine Negative ng/mL (Cutoff=200); Cannabinoid Screen,Urine Negative ng/mL (Cutoff = 50); Cocaine Screen,Urine Negative ng/mL (Cutoff= 300); Opiate Screen,Urine Negative ng/mL (Cutoff=300); Phencyclidine Screen,Urine Negative ng/mL (Cutoff=25)
[2019-09-18] MEDS: Acetaminophen 325 MG TABLET PO PRN (19:18)
[2019-09-18] MEDS ORDERED: Ibuprofen 600 MG TABLET PO ONE (21:01)
[2019-09-19 02:30] LABS: Hemoglobin 16.2 g/dL (12.9-16.9); Mean Corpuscular HGB Conc 34.5 g/dL (31.6-35.5); Mean Platelet Volume 11.1 fL (9.4-12.4); Platelet Count 291 K/mcL (140-400); Red Cell Distribution Width 12.5 % (11.5-14.5); White Blood Count 13.9 K/mcL (4.3-11.1)
[2019-09-19 02:44] LABS: BUN/Creatinine Ratio 27 (6-26); Blood Urea Nitrogen 27 mg/dL (6-20); Calcium 8.7 mg/dL (8.6-10.3); Carbon Dioxide 25 mEq/L (23-29); Chloride 97 mEq/L (98-107); Glucose 165 mg/dL (70-105); Osmolality,Calculated 287 (280-300); Potassium 3.6 mEq/L (3.5-5.1); Sodium 134 mEq/L (136-145); eGFR For African Americans > 60 (> 60); eGFR For Non-African Americans > 60 (> 60)
[2019-09-19] MEDS: *HR* Heparin 5,000 UNIT/ML VIAL SQ SCH ×2 (05:07→14:35)
[2019-09-19] MEDS: Acetaminophen 325 MG TABLET PO PRN ×2 (08:53→14:35)
[2019-09-19 15:44] VITALS: BP 150/82
== END 2019-09-19 17:21 | disposition home or self-care (01) ==
LOC: 3BNU 14:38 → EMEROOARM 14:38 → SUATTDRO 21:14 → 3BNU 22:13
PROVIDERS: ADMIT Internal Medicine; ATTEND Family Medicine

== ENCOUNTER 2020-01-05 16:41 | Observation (INO) ==
[2020-01-05 17:23] LABS: Hematocrit 49.3 % (37.5-50.1); Hemoglobin 16.6 g/dL (12.9-16.9); Mean Corpuscular HGB Conc 33.7 g/dL (31.6-35.5); Mean Corpuscular Hemoglobin 30.6 pg (28.0-33.3); Mean Platelet Volume 12.4 fL (9.4-12.4); Platelet Count 231 K/mcL (140-400); Red Blood Count 5.42 M/mcL (4.19-5.50); Red Cell Distribution Width 12.9 % (11.5-14.5); White Blood Count 10.4 K/mcL (4.3-11.1)
[2020-01-05 17:26] LABS: VBG HCO3 26 mEq/L (21-27); VBG PCO2 40 mmHg (41-51); VBG PH 7.42 pH Units (7.32-7.42); VBG PO2 116 mmHg (25-50)
[2020-01-05] MEDS: 0.9 % Sodium Chloride 1,000 ML IVC SCH ×2 (17:30→18:43)
[2020-01-05 17:58] LABS: BUN/Creatinine Ratio 13 (6-26); Blood Urea Nitrogen 15 mg/dL (6-20); Calcium 9.2 mg/dL (8.6-10.3); Carbon Dioxide 25 mEq/L (23-29); Chloride 85 mEq/L (98-107); Glucose 895 mg/dL (70-105); Magnesium 1.8 mg/dL (1.6-2.6); Osmolality,Calculated 305 (280-300); Phosphorous 3.4 mg/dL (2.7-4.5); Potassium 3.9 mEq/L (3.5-5.1); Sodium 125 mEq/L (136-145); eGFR For African Americans > 60 (> 60); eGFR For Non-African Americans > 60 (> 60)
[2020-01-05 18:04] LABS: Bilirubin,Urine Negative (Negative); Blood,Urine Negative (Negative); Clarity,Urine Clear (Clear); Color,Urine Yellow (Yellow); Glucose,Urine (UA) >=1000 mg/dL (Normal); Ketones,Urine Negative (Negative); Leukocyte Esterase,Urine Negative (Negative); Nitrite,Urine Negative (Negative); Protein,Urine Negative (Neg-Trace); Specific Gravity,Urine > 1.030 (1.010-1.025); Urobilinogen,Urine Normal (Normal)
[2020-01-05 18:08] LABS: Amphetamine Screen,Urine Negative ng/mL (Cutoff=1000); Barbiturate Screen,Urine Negative ng/mL (Cutoff=200); Benzodiazepines Screen,Urine Negative ng/mL (Cutoff=200); Cannabinoid Screen,Urine Negative ng/mL (Cutoff = 50); Cocaine Screen,Urine Negative ng/mL (Cutoff= 300); Opiate Screen,Urine Negative ng/mL (Cutoff=300); Phencyclidine Screen,Urine Negative ng/mL (Cutoff=25)
[2020-01-05] MEDS ORDERED: 0.9 % Sodium Chloride 1,000 ML IVC ONE (18:09)
[2020-01-05 18:19] LABS: Lymphocytes # 2.3 K/mcL (0.6-4.6); Neutrophils # 7.1 K/mcL (1.6-8.9); Platelet Estimate Normal (Normal); Reactive Lymphocytes Present (Not Present)
[2020-01-05] MEDS ORDERED: *HR* Dextrose 50 % in Water (Syg) 50 ML SYRINGE IVP PRN ×2 (18:23→22:27)
[2020-01-05] MEDS: Insulin Human Regular 100 UNIT in 0.9 % Sodium Chloride 100 ML IVC SCH (19:26)
[2020-01-05] MEDS ORDERED: Ondansetron 4 MG/2 ML VIAL IVP PRN (20:21)
[2020-01-05] MEDS ORDERED: Naloxone 0.4 MG/ML INJ IVP PRN (20:21)
[2020-01-05 21:36] LABS: VBG HCO3 27 mEq/L (21-27); VBG PCO2 40 mmHg (41-51); VBG PH 7.45 pH Units (7.32-7.42); VBG PO2 65 mmHg (25-50)
[2020-01-05] MEDS ORDERED: 0.45 % Sodium Chloride w/KCl 20 MEQ/1,000 ML MLS IVC PRN (22:30)
[2020-01-05 22:46] LABS: BUN/Creatinine Ratio 13 (6-26); Blood Urea Nitrogen 12 mg/dL (6-20); Calcium 8.5 mg/dL (8.6-10.3); Carbon Dioxide 28 mEq/L (23-29); Chloride 101 mEq/L (98-107); Glucose 338 mg/dL (70-105); Osmolality,Calculated 297 (280-300); Potassium 3.5 mEq/L (3.5-5.1); Sodium 137 mEq/L (136-145); eGFR For African Americans > 60 (> 60); eGFR For Non-African Americans > 60 (> 60)
[2020-01-05] MEDS: *HR* Heparin 5,000 UNIT/ML VIAL SQ SCH (23:15)
[2020-01-06] MEDS: D5% in 0.45% NACL w KCl 20 MEQ/1,000 ML MLS IVC PRN ×2 (00:50→04:52)
[2020-01-06 01:06] LABS: Basophils # 0.1 K/mcL (0.0-0.2); Basophils % 0.9 %; Eosinophils # 0.4 K/mcL (0.0-0.6); Eosinophils % 3.9 %; Hematocrit 45.2 % (37.5-50.1); Hemoglobin 15.6 g/dL (12.9-16.9); Lymphocytes # 3.3 K/mcL (0.6-4.6); Lymphocytes % 33.6 %; Mean Corpuscular HGB Conc 34.5 g/dL (31.6-35.5); Mean Corpuscular Hemoglobin 29.8 pg (28.0-33.3); Mean Corpuscular Volume 86.3 fL (83.0-100.0); Mean Platelet Volume 11.7 fL (9.4-12.4); Monocytes # 0.8 K/mcL (0.0-1.3); Monocytes % 7.8 %; Neutrophils # 5.2 K/mcL (1.6-8.9); Platelet Count 204 K/mcL (140-400); Red Blood Count 5.24 M/mcL (4.19-5.50); Red Cell Distribution Width 12.5 % (11.5-14.5); Segmented Neutrophils % 52.8 %; White Blood Count 9.8 K/mcL (4.3-11.1)
[2020-01-06 01:11] LABS: VBG HCO3 31 mEq/L (21-27); VBG PCO2 51 mmHg (41-51); VBG PH 7.38 pH Units (7.32-7.42); VBG PO2 49 mmHg (25-50)
[2020-01-06 01:26] LABS: Alanine Aminotransferase 46 Units/L (7-52); Albumin 3.7 g/dL (3.5-5.7); Albumin/Globulin Ratio 1.2 (1.1-2.2); Alkaline Phosphatase 79 Units/L (34-104); Aspartate Amino Transferase 32 Units/L (13-39); BUN/Creatinine Ratio 14 (6-26); Bilirubin,Total 0.6 mg/dL (0.3-1.0); Blood Urea Nitrogen 11 mg/dL (6-20); Calcium 8.6 mg/dL (8.6-10.3); Carbon Dioxide 31 mEq/L (23-29); Chloride 102 mEq/L (98-107); Cholesterol 139 mg/dL (< 200); Globulin 3.2 g/dL (2.4-3.5); Glucose 118 mg/dL (70-105); HDL Cholesterol 23 mg/dL (40-59); LDL Cholesterol,Calculated 70 mg/dL (0-99); Magnesium 1.9 mg/dL (1.6-2.6); Osmolality,Calculated 290 (280-300); Phosphorous 2.2 mg/dL (2.7-4.5); Potassium 3.4 mEq/L (3.5-5.1); Sodium 140 mEq/L (136-145); Total Protein 6.9 g/dL (6.4-8.9); Triglycerides 231 mg/dL (< 150); eGFR For African Americans > 60 (> 60); eGFR For Non-African Americans > 60 (> 60)
[2020-01-06 01:35] LABS: Platelet Estimate Normal (Normal); Reactive Lymphocytes Present (Not Present)
[2020-01-06] MEDS: Insulin Human Regular 100 UNIT in 0.9 % Sodium Chloride 100 ML IVC SCH (02:44)
[2020-01-06] MEDS: *HR* Heparin 5,000 UNIT/ML VIAL SQ SCH ×3 (04:53→20:37)
[2020-01-06] MEDS ORDERED: D5% in Water 1,000 ML IVC PRN (07:21)
[2020-01-06] MEDS ORDERED: Dextrose Gel 15 GM/37.5 ML TUBE PO PRN ×2 (07:21)
[2020-01-06] MEDS ORDERED: *HR* Dextrose 50 % in Water (Syg) 50 ML SYRINGE IVP PRN (07:21)
[2020-01-06] MEDS: Insulin LISPRO 300 UNITS/3 ML VIAL SQ SCH ×3 (08:44→17:10)
[2020-01-06] MEDS ORDERED: Insulin DETEMIR 100 UNIT/ML X5UNITS SQ SCH ×2 (09:00→21:00)
[2020-01-06] MEDS ORDERED: Potassium Chloride Elixir 20 MEQ/15 ML UDC PO ONE (12:38)
[2020-01-06] MEDS: Acetaminophen 325 MG TABLET PO PRN (14:41)
[2020-01-06] MEDS: *HR* Metformin 500 MG TABLET PO SCH (17:09)
[2020-01-07 02:59] LABS: BUN/Creatinine Ratio 16 (6-26); Blood Urea Nitrogen 13 mg/dL (6-20); Calcium 9.2 mg/dL (8.6-10.3); Carbon Dioxide 24 mEq/L (23-29); Chloride 100 mEq/L (98-107); Glucose 285 mg/dL (70-105); Osmolality,Calculated 286 (280-300); Sodium 133 mEq/L (136-145); eGFR For African Americans > 60 (> 60); eGFR For Non-African Americans > 60 (> 60)
[2020-01-07] MEDS: *HR* Heparin 5,000 UNIT/ML VIAL SQ SCH (05:32)
[2020-01-07 07:11] VITALS: BP 112/72
[2020-01-07] MEDS: *HR* Metformin 500 MG TABLET PO SCH (07:56)
[2020-01-07] MEDS: Insulin LISPRO 300 UNITS/3 ML VIAL SQ SCH (07:58)
[2020-01-07] MEDS ORDERED: Aspirin Enteric Coated 81 MG Tablet PO SCH (09:00)
[2020-01-07] MEDS: Acetaminophen 325 MG TABLET PO PRN (09:50)
[2020-01-07] MEDS ORDERED: Insulin LISPRO 300 UNITS/3 ML VIAL SQ SCH (12:00)
[2020-01-07] MEDS ORDERED: Insulin DETEMIR 100 UNIT/ML X5UNITS SQ SCH (21:00)
== END 2020-01-07 11:02 | disposition home or self-care (01) ==
LOC: 3NENU 16:41 → EMEROOARM 16:41 → SUATTDRO 18:55 → 3NENU 19:43 → 3BNU 01-06 13:20
PROVIDERS: ADMIT Internal Medicine; ATTEND Internal Medicine